=== PATIENT | male | born 1990 | race Caucasian/White ===

== ENCOUNTER 2019-05-14 09:18 | Emergency (ER) | payer MEDICAID ==
[~2019-05-14] VITALS: Ht 190.5 cm; Wt 86.2 kg
[2019-05-14 09:21] VITALS: BP 113/73
--- NOTE | 2019-05-14 09:36 | NUR ---
[place] [employer] FOR PREBOOK CLEARANCE. PT HAS ABRAISONS TO BILAT KNEES AND SUSPECTED ETOH INTOXICATION. PATIENT POSITIONED FOR COMFORT; HOB ELEVATED; BEDRAILS UP X2; BED DOWN. ER MD MADE AWARE OF PT STATUS.
--- NOTE | 2019-05-14 10:55 | NUR ---
Patient being evaluated by REJI at bedside.
--- NOTE | 2019-05-14 11:50 | NUR ---
DARELL SYKES. STATED TO RELEASE AND UNCUFFED PATIENT.
[2019-05-14 11:55] LABS: BASOPHILS % (AUTO) 0.3 % (0.0-2.0); EOSINOPHILS % (AUTO) 0.1 % (0.0-4.0); HEMATOCRIT 46.8 % (36-52); HEMOGLOBIN 15.5 g/dL (12.0-18.0); LYMPHOCYTES # (AUTO) 1.7 K/uL (2.0-11.5); LYMPHOCYTES % (AUTO) 27.9 % (20.5-51.1); MEAN CORPUSCULAR HEMOGLOBIN 31 pg (27-31); MEAN CORPUSCULAR HGB CONC 33 g/dL (33-37); MEAN CORPUSCULAR VOLUME 92.2 fL (80-94); MONOCYTES # (AUTO) 0.3 K/uL (0.8-1.0); MONOCYTES % (AUTO) 5.1 % (1.7-9.3); NEUTROPHILS % (AUTO) 66.6 % (42.2-75.2); PLATELET COUNT (AUTO) 274 K/uL (140-450); RED BLOOD CELL COUNT(AUTO) 5.08 MIL/uL (4.20-6.10)
[2019-05-14 12:05] LABS: ANION GAP 11.9 (8-16); POTASSIUM 3.9 mmol/L (3.5-5.1)
[2019-05-14 12:17] LABS: TOTAL BILIRUBIN 0.2 mg/dL (0.0-1.0)
[2019-05-14 13:25] LABS: BARBITURATE, URINE NEG. ng/ml (NEG <=200); BENZODIAZEPINE, URINE NEG. ng/mL (NEG <=200); CANNABINOID, URINE NEG. ng/mL (NEG <=50); COCAINE, URINE NEG. ng/mL (NEG <=300); OPIATE, URINE NEG. ng/mL (NEG <=2000); PHENCYCLIDINE SCREEN,URINE NEG. ng/mL (NEG <=25)
--- NOTE | 2019-05-14 15:11 | NUR ---
Patient being reevaluated by REJI at bedside.
[2019-05-14 15:16] VITALS: BP 118/87
--- NOTE | 2019-05-14 15:16 | NUR ---
Patient discharged with v/s stable. Written and verbal after care instructions given and explained. Patient verbalized understanding. Ambulatory with steady gait. All questions addressed prior to discharge. Advised to follow up with PMD.
== END 2019-05-14 15:16 | disposition home or self-care (01) ==
LOC: MED 09:18
DX: S80.212A Abrasion, left knee, initial encounter (principal); S80.211A Abrasion, right knee, initial encounter; S60.512A Abrasion of left hand, initial encounter; S60.511A Abrasion of right hand, initial encounter; X58.XXXA Exposure to other specified factors, initial encounter; F10.129 Alcohol abuse with intoxication, unspecified; Y93.89 Activity, other specified; Y92.89 Other specified places as the place of occurrence of the external cause; Y99.8 Other external cause status
CPT/HCPCS: 36415; 70450; 70491; 72125; 73562; 80053; 80305; 81002; 82550; 82553; 85025; 90471; 90715; 99284; G0482; Q9967

== ENCOUNTER 2019-08-20 11:03 | Inpatient (IN) | payer MEDICAID ==
[~2019-08-20] VITALS: Ht 190.5 cm; Wt 73.9 kg
[2019-08-20 11:12] VITALS: BP 138/97
--- NOTE | 2019-08-20 11:20 | NUR ---
Patient ambulated to bed 8. RN evaluating patient at bedside.
--- NOTE | 2019-08-20 11:25 | NUR ---
BIB MOM W/ C/O OVERDOSE OF IMMODIUM (80 TABLETS) THIS MORNING BEFORE 9AM & 1 GALLON OF VODKA LAST NIGHT. PT STATES " I WAS TRYING TO GET HIGH". DT DENIES SI/HI. MOM REPORTS PT WAS JUST RELEASED FROM PSYCHIATRIC FACILITY 1 WEEK AGO FOR SI - THREATENED SI THOUGHTS. PT WAS IN [facility] THIS MORNING, AFTER THAT WENT TO PSYCHIATRIC CLINIC, PT WAS CLAMMY & TACHYCARDIC AND SLURRING SPEECH.PT ALSO WAS GASPING FOR AIR A LITTLE BIT AROUND 1000 ( PER MOTHER). THEN PT CAME TO ER. HX: BIPOLAR, PTSD, MANY PRIOR SI ATTEMPTS, DRUG USE RX: QUETIAPINE, OLANZAPINE, MIRTAZAPINE, BENZTROPIN, SERTRALINE, GABAPENTIN . PT DENIES N/V/D; SKIN IS PINK/WARM/DRY; AWAKE, ALERT. BEDSIDE MONITOR SHOWS [id number]. LUNGS CLEAR BL; PT DENIES ANY FEVER, CP, SOB, OR COUGH AT THIS TIME; O2 SATS 98% ON RA. PATIENT STATES PAIN OF 0/10 AT THIS TIME; PATIENT POSITIONED FOR COMFORT; HOB ELEVATED; BEDRAILS UP X2; BED DOWN. ER MD MADE AWARE OF PT STATUS.MOTHER AT BEDSIDE.
[2019-08-20 11:42] LABS: BASOPHILS % (AUTO) 0.2 % (0.0-2.0); EOSINOPHILS # (AUTO) 0.1 K/uL (0-0.4); EOSINOPHILS % (AUTO) 0.9 % (0.0-4.0); HEMATOCRIT 50.4 % (36-52); LYMPHOCYTES # (AUTO) 1.4 K/uL (2.0-11.5); LYMPHOCYTES % (AUTO) 14.1 % (20.5-51.1); MEAN CORPUSCULAR HEMOGLOBIN 32 pg (27-31); MEAN CORPUSCULAR HGB CONC 34 g/dL (33-37); MEAN CORPUSCULAR VOLUME 95.4 fL (80-94); MONOCYTES # (AUTO) 0.8 K/uL (0.8-1.0); NEUTROPHILS # (AUTO) 7.3 K/uL (1.8-7.7); NEUTROPHILS % (AUTO) 76.8 % (42.2-75.2); PLATELET COUNT (AUTO) 235 K/uL (140-450); RED BLOOD CELL COUNT(AUTO) 5.28 MIL/uL (4.20-6.10); RED CELL DISTRIBUTION WIDTH 13.2 % (11.6-13.7); WHITE BLOOD COUNT (AUTO) 9.6 K/uL (4.8-10.8)
[2019-08-20 11:49] LABS: ANION GAP 17.8 (8-16); CARBON DIOXIDE 21.6 mmol/L (21-32); CHLORIDE 103 mmol/L (98-107); GFR ARICAN-AMERICAN 113 mL/min (>90); GLUCOSE 103 mg/dL (74-106); POTASSIUM 4.4 mmol/L (3.5-5.1); SODIUM SERUM 138 mmol/L (136-145); UREA NITROGEN, BLOOD 17 mg/dL (7-18)
--- NOTE | 2019-08-20 12:13 | NUR ---
CALLED [facility] [employer] [phone]. TALKED TO GEORGE. PER GEORGE, CHECK LAB TYLENOL, ASPIRIN , BLOOD ALCHOLO, OBERSERVE FOR 4-6 HRS. REPEAT EKG IN 4 HRS, IF PT IS LETHARGIC AND RESPIRATION DEPRESSION, GIVE PT NARCAN, WILL NOTIFY
--- NOTE | 2019-08-20 12:19 | NUR ---
Telepsychiatry consultation ordered as requested by Dr. Rayo.
[2019-08-20 12:23] LABS: ASPARTATE AMINOTRANSFERASE 45 U/L (15-37); TOTAL BILIRUBIN 1.1 mg/dL (0.0-1.0)
[2019-08-20 12:24] LABS: ACETAMINOPHEN < 0.5 ug/ml (10-30); ALBUMIN 4.7 g/dL (3.4-5.0); SALICYLATE 5.7 mg/dL (2.8-20.0)
[2019-08-20 12:45] LABS: APPEARANCE,URINE CLEAR (CLEAR); BILIRUBIN,URINE NEGATIVE (NEGATIVE); BLOOD, URINE NEGATIVE (NEGATIVE); COLOR,URINE YELLOW (YELLOW); LEUKOCYTE ESTERASE ,URINE NEGATIVE (NEGATIVE); NITRITE, URINE POSITIVE (NEGATIVE); PH,URINE 5.5 (5.0-9.0); UGLUCOSE NEGATIVE (NEGATIVE)
[2019-08-20 12:53] LABS: BARBITURATE, URINE NEG. ng/ml (NEG <=200); BENZODIAZEPINE, URINE NEG. ng/mL (NEG <=200); CANNABINOID, URINE NEG. ng/mL (NEG <=50); COCAINE, URINE NEG. ng/mL (NEG <=300); OPIATE, URINE NEG. ng/mL (NEG <=2000); PHENCYCLIDINE SCREEN,URINE NEG. ng/mL (NEG <=25)
[2019-08-20 13:04] LABS: RBC,URINE 0 /HPF (0-5); WBC,URINE 0-5 /HPF (0-5)
--- NOTE | 2019-08-20 13:09 | NUR ---
Telepsych is speaking with patient.
--- NOTE | 2019-08-20 14:02 | NUR ---
PT EATING LUNCH, MOTHER AT BEDSIDE.
--- NOTE | 2019-08-20 14:09 | NUR ---
[place] PD evaluating patient for 5150 hold at bedside.
--- NOTE | 2019-08-20 15:01 | NUR ---
RECEIVED PHONE CALL FROM [employer] EMPLOYEE AUGUST, UPDATED PT'S CONDITION. NOTIFIED LAB RESULTS.
[2019-08-20] MEDS ORDERED: LORazepam 1 MG TAB PO ONE (15:20)
[2019-08-20] MEDS ORDERED: ONDANSETRON 4 MG/2 ML VIAL IVP PRN (16:35)
[2019-08-20] MEDS ORDERED: HYDROcodone/APAP 5/325 MG 1 TAB TAB PO PRN (16:35)
[2019-08-20 17:00] VITALS: BP 112/61
--- NOTE | 2019-08-20 17:00 | NUR ---
TRANSFERRED PT TO TELE 109A BY WHEELCHAIR. PT AWAKE, ALERT. NO SOB. PT AMBULATES FROM HALLWAY TO HIS ROOM. REPORT GIVEN TO ARMOND VALLADARES . PT'S FATHER WITH PT.
--- NOTE | 2019-08-20 17:00 | NUR ---
PATIENT ARRIVED UNIT VIA WHEELCHAIR ACCOMPANIED BY ER NURSE AND PATIENT'S FATHER. PATIENT IS AAOX3 TO NAME, PLACE, TIME, BUT NOT DATE. RESPIRATION EVEN AND UNLABORED ON RA. DENIED PAIN, NAUSEA, AND VOMITING. NO SIGNS OF DISTRESS NOTED. NO IV SITE ESTABLISHED. PATIENT IS ABLE TO AMBULATE AND CONTINENT. ORIENTED PATIENT TO THE ROOM. SAFETY MEASURES IN PLACE. BED IN LOW POSITION AND 1:1 SITTER BY BEDSIDE.
--- NOTE | 2019-08-20 17:25 | NUR ---
STARTED IV ON RFA 22G, PATIENT TOLERATE WELL. DATED AND STABILIZED IV.
[2019-08-20] MEDS: LORazepam 2 MG/ML VIAL IVP PRN ×2 (18:00→21:44)
--- NOTE | 2019-08-20 18:00 | NUR ---
PATIENT COMPLAINED HE IS RESTLESS AND ANXIOUS, ADMINISTERED PRN ATIVAN VIA IVP, PATIENT TOLERATED. MED EDUCATION PROVIDED TO PATIENT AND PATIENT VERBALIZED UNDERSTANDING. PATIENT AWAKE AND READING MAGAZINE ON BED AT THIS TIME. NO SIGNS OF DISTRESS NOTED. SAFETY MEASURES IN PLACE. 1:1 SITTER BY BEDSIDE.
--- NOTE | 2019-08-20 18:04 | NUR ---
DR SORTO IS TALKING TO PATIENT AT BEDSIDE. NO SIGNS OF DISTRESS NOTED. SAFETY MEASURES IN PLACE.
--- NOTE | 2019-08-20 19:09 | NUR ---
ENDORSED PATIENT AT BEDSIDE TO AUTO COLLISION REPAIR INSTRUCTOR NURSE FOR CONTINUITY OF CARE. PATIENT IS RESTING ON BED AT THIS TIME. NO SIGNS OF DISTRESS NOTED. PATIENT IS IN STABLE CONDITION. SAFETY MEASURES IN PLACE. 1:1 SITTER BY BEDSIDE.
--- NOTE | 2019-08-20 19:10 | NUR ---
RECEIVED ENDORSEMENT FROM AM SHIFT RN. PATIENT ALERT AND ORIENTED X 3. INTRODUCED SELF. DENIES PAIN AND DISCOMFORT. CALM AND COOPERATIVE. PIV ON RIGHT UPPER ARM G22 AC, INTACT AND PATENT AND FLUSHING WELL. NO SIGNS OF DISTRESS NOTED. SAFETY MEASURES IN PLACE. ON 5150 HOLD. 1:[address] OBSERVED AT ALL TIMES.
--- NOTE | 2019-08-20 21:45 | NUR ---
PATIENT REQUESTED PRN ATIVAN FOR RESTLESSNESS. GIVEN ORDERED.
[2019-08-20] MEDS ORDERED: NICOTINE TRANSD SYS 21 MG/24 HR PATCH TD SCH (22:00)
[2019-08-20] MEDS: LORazepam 1 MG TAB PO SCH (23:16)
--- NOTE | 2019-08-20 23:30 | NUR ---
Checks done. Patient asleep in bed. No distress noted. 1:1 Sitter. Observed at all times. Will continue to monitor.
[2019-08-21] VITALS: BP 103/65
--- NOTE | 2019-08-21 01:20 | NUR ---
Rounds done. Patient resting comfortably in bed. Visible chest rise and fall noted. No apparent distress noted. Will continue to monitor.
--- NOTE | 2019-08-21 03:15 | NUR ---
Checks done. Patient asleep in bed at this time. No distress noted. Visible chest rise and fall noted. Will continue to monitor.
--- NOTE | 2019-08-21 04:10 | NUR ---
Checks made. Patient asleep on left lateral side. Visible chest rise and fall noted.
[2019-08-21] MEDS: LORazepam 1 MG TAB PO SCH ×3 (05:15→17:21)
--- NOTE | 2019-08-21 06:07 | NUR ---
Patient comfortable in bed. Due medications given. Vital stable. Will endorse to AM shift RN for continuity of care.
[2019-08-21 06:55] LABS: BASOPHILS % (AUTO) 0.4 % (0.0-2.0); EOSINOPHILS # (AUTO) 0.1 K/uL (0-0.4); EOSINOPHILS % (AUTO) 1.7 % (0.0-4.0); HEMATOCRIT 46.6 % (36-52); HEMOGLOBIN 15.3 g/dL (12.0-18.0); LYMPHOCYTES # (AUTO) 1.2 K/uL (2.0-11.5); LYMPHOCYTES % (AUTO) 26.6 % (20.5-51.1); MEAN CORPUSCULAR HEMOGLOBIN 32 pg (27-31); MEAN CORPUSCULAR HGB CONC 33 g/dL (33-37); MONOCYTES # (AUTO) 0.5 K/uL (0.8-1.0); MONOCYTES % (AUTO) 10.3 % (1.7-9.3); NEUTROPHILS # (AUTO) 2.7 K/uL (1.8-7.7); PLATELET COUNT (AUTO) 175 K/uL (140-450); RED BLOOD CELL COUNT(AUTO) 4.85 MIL/uL (4.20-6.10); RED CELL DISTRIBUTION WIDTH 13.1 % (11.6-13.7); WHITE BLOOD COUNT (AUTO) 4.5 K/uL (4.8-10.8)
--- NOTE | 2019-08-21 07:00 | NUR ---
PT IS AWAKE AND LYING ON THE BED, 1:1 SITTER ON THE BEDSIDE, PERIPHERAL LINE ON THE RT FA G. 22 ON SALINE LOCK, PT DENIES PAIN, DR. BERNARDO IS TALKING TO PT AND ASSESSING THE PT, AND SAID THAT PT IS STILL ON A 5150 [address] ON A PSYCH FACILITY, NO SIGN OF DISTRESS NOTED, ROOM WAS CHECKED FOR ANY HAZARDOUS OBJECT. WILL CONTINUE TO MONITOR PT.
[2019-08-21 08:00] VITALS: BP 115/65
[2019-08-21] MEDS: NICOTINE TRANSD SYS 21 MG/24 HR PATCH TD SCH (08:40)
[2019-08-21] MEDS: ESCITALOPRAM 20 MG TAB PO SCH (08:40)
--- NOTE | 2019-08-21 08:40 | NUR ---
PT IS AWAKE AND V/S TAKEN AND IS STABLE, ORAL MEDICATIONS WERE GIVEN AND NICOTINE PATCH APPLIED ON THE LEFT UA, TOLERATED THE MEDS, AND WILL CONTINUE TO MONITOR PT.
[2019-08-21 09:46] LABS: ANION GAP 12.3 (8-16); CARBON DIOXIDE 24.8 mmol/L (21-32); CREATININE 0.9 mg/dL (0.7-1.3); POTASSIUM 4.1 mmol/L (3.5-5.1); TOTAL BILIRUBIN 0.3 mg/dL (0.0-1.0)
[2019-08-21 09:47] LABS: ALBUMIN 3.7 g/dL (3.4-5.0)
--- NOTE | 2019-08-21 10:30 | NUR ---
PT IS CALM, QUIET AND KEEPS PACING BACK AND FORTH INSIDE THE ROOM.
--- NOTE | 2019-08-21 12:25 | NUR ---
PT IS AWAKE AND FEELING ANXIOUS, MEDICATIONS WAS GIVEN AND TOLERATED IT. WILL MONITOR PT.
--- NOTE | 2019-08-21 15:10 | NUR ---
PT WAS ASSISTED BY MARY TO HAVE A SHOWER NOW.
[2019-08-21 16:00] VITALS: BP 113/72
[2019-08-21] MEDS ORDERED: OLAN20TA1 PO (16:37)
[2019-08-21] MEDS ORDERED: GABA-640 PO (16:37)
[2019-08-21] MEDS ORDERED: MIRT15TA PO (16:37)
[2019-08-21] MEDS ORDERED: BENZ2TAB27 PO (16:37)
[2019-08-21] MEDS ORDERED: QUET25TA PO (16:37)
--- NOTE | 2019-08-21 17:21 | NUR ---
PT IS AWAKE AND ATIVAN WAS GIVEN, PARAMETER CHECKED. WILL MONITOR PT.
--- NOTE | 2019-08-21 19:10 | NUR ---
ENDORSED PT TO TRACK LAYER NURSEJAYRO FOR CONTINUITY OF CARE.
--- NOTE | 2019-08-21 19:11 | NUR ---
RECD. RESTING IN BED, AWAKE, A/OX4. RESPIRATION EVEN AND UNLABORED. IV SALINE LOCK AT THE LEFT FOREARM G22, PATENT AND INTACT. AMBULATORY TO THE BR. WHEN INQUIRED IF HE HAS ANY SUICIDAL THOUGHTS, STATED NONE. PLAN OF CARE FOR THE SHIFT DISCUSSED WITH PATIENT AND PARENTS, VERBALIZED UNDERSTANDING. MOTHER WANTS NIGHT MEDICATION AT HOME TO BE TAKEN TONIGHT. WILL FOLLOW UP WITH DR. SIERRA AND PHARMACY. DENIES PAIN 0/10.
[2019-08-21 20:00] VITALS: BP 101/51
[2019-08-21] MEDS ORDERED: ZOLPIDEM 5 MG TAB PO PRN (20:05)
[2019-08-21] MEDS: GABAPENTIN 100 MG CAP PO SCH (20:50)
--- NOTE | 2019-08-21 20:50 | NUR ---
DUE PO NIGHT MEDICATIONS GIVEN. SITTER AT THE DOOR MONITORING PATIENT.
[2019-08-21] MEDS: OLANZapine 5 MG TAB PO SCH (20:51)
[2019-08-21] MEDS: MIRTAZAPINE 15 MG TAB PO SCH (20:53)
[2019-08-21] MEDS ORDERED: GABAPENTIN 400 MG PO SCH (21:00)
--- NOTE | 2019-08-21 22:00 | NUR ---
SLEEPING COMFORTABLY IN BED.
[2019-08-22] VITALS: BP 97/59
--- NOTE | 2019-08-22 | NUR ---
SLEEPING SOUNDLY, SNORING IN BED;.
[2019-08-22] MEDS: LORazepam 1 MG TAB PO SCH ×5 (00:49→23:42)
--- NOTE | 2019-08-22 04:00 | NUR ---
STILL SLEEPING SOUNDLY IN BED. S1:1 SITTER STILL MONITORING PATIENT.
--- NOTE | 2019-08-22 06:57 | NUR ---
CONDITION REMAIN STABLE. NO NOTED SUICIDAL BEHAVIOR DURING SHIFT. SLEEPING MOST OF THE TIME. WILL ENDORSE TO AM NURSE FOR CONTINUITY OF CARE.
--- NOTE | 2019-08-22 07:17 | NUR ---
RECEIVED REPORT FROM SUBEDITOR NURSE. PATIENT LYING DOWN IN BED SLEEPING, AROUSABLE BY VOICE AND TOUCH. NO DISTRESS NOTED. DENIES ANY PAIN. AAOX4, CALM, COOPERATIVE, SKIN COLOR APPROPRIATE TO ETHNICITY, WARM TO TOUCH. SKIN INTACT. IV SITE INTACT, PATENT, ON SALINE LOCK. RESPIRATIONS EVEN, UNLABORED, ON ROOM AIR. REVIEWED PLAN OF CARE WITH PATIENT. PATIENT VERBALIZED UNDERSTANDING. SAFETY MEASURES IN PLACE, CALL LIGHT WITHIN REACH. WILL CONTINUE TO MONITOR.
[2019-08-22 08:00] VITALS: BP 106/60
--- NOTE | 2019-08-22 08:20 | NUR ---
PATIENT HAS BEEN SCREENED AND CATEGORIZED LOW NUTRITION RISK. PATIENT WILL BE SEEN WITHIN 7 DAYS OF ADMISSION. 08/26/[address]
[2019-08-22] MEDS: GABAPENTIN 100 MG CAP PO SCH ×2 (09:36→20:10)
[2019-08-22] MEDS: BENZTROPINE 1 MG TAB PO SCH (09:36)
[2019-08-22] MEDS: SERTRALINE 50 MG TAB PO SCH (09:37)
[2019-08-22] MEDS: OLANZapine 5 MG TAB PO SCH ×2 (09:37→20:09)
[2019-08-22] MEDS: NICOTINE TRANSD SYS 21 MG/24 HR PATCH TD SCH (09:37)
[2019-08-22] MEDS: ESCITALOPRAM 20 MG TAB PO SCH (09:37)
[2019-08-22] MEDS: QUEtiapine FUMARATE 25 MG TAB PO SCH ×3 (09:37→17:26)
--- NOTE | 2019-08-22 09:41 | NUR ---
PATIENT LYING DOWN IN BED SLEEPING, AROUSABLE BY VOICE. NO DISTRESS NOTED. DENIES ANY PAIN. SCHEDULED MEDICATIONS DUE GIVEN. WILL CONTINUE TO MONITOR.
--- NOTE | 2019-08-22 12:17 | NUR ---
PATIENT SITTING DOWN IN BED WITH LUNCH TRAY IN FRONT. SCHEDULED MEDICATIONS DUE GIVEN. WILL CONTINUE TO MONITOR.
--- NOTE | 2019-08-22 12:18 | NUR ---
PATIENT SITTING DOWN IN BED TALKING WITH MOTHER AT BEDSIDE. WILL CONTINUE TO MONITOR.
--- NOTE | 2019-08-22 15:30 | NUR ---
PATIENT LYING DOWN IN BED SLEEPING, MOTHER AT BEDSIDE. CONDITION UNCHANGED. SITTER AT BEDSIDE. WILL CONTINUE TO MONITOR.
[2019-08-22 16:00] VITALS: BP 108/62
--- NOTE | 2019-08-22 17:28 | NUR ---
PATIENT LYING DOWN IN BED SLEEPING, AROUSABLE BY VOICE. NO DISTRESS NOTED. DENIES ANY PAIN. SCHEDULED MEDICATIONS DUE GIVEN. WILL CONTINUE TO MONITOR.
--- NOTE | 2019-08-22 19:16 | NUR ---
GAVE REPORT TO GRAPHICS SPECIALIST NURSE FOR CONTINUITY OF CARE. PATIENT IN STABLE CONDITION.
--- NOTE | 2019-08-22 19:17 | NUR ---
RECEIVED BEDSIDE REPORT FROM DAY SHIFT NURSEBAILEY. PATIENT LYING DOWN IN BED SLEEPING, MOTHER AT BESIDE. NO DISTRESS NOTED. DENIES ANY PAIN. AAOX4, CALM, COOPERATIVE, SKIN INTACT, WARM AND DRY TO TOUCH. IV SITE ON LFA 22G, INTACT, PATENT, AND ASYMPTOMATIC ON SALINE LOCK. RESPIRATIONS EVEN, UNLABORED, ON ROOM AIR. REVIEWED PLAN OF CARE WITH PATIENT. PATIENT VERBALIZED UNDERSTANDING. SAFETY MEASURES IN PLACE, CALL LIGHT WITHIN REACH. WILL CONTINUE TO MONITOR.
[2019-08-22] MEDS: MIRTAZAPINE 15 MG TAB PO SCH (20:09)
[2019-08-22] MEDS: ZOLPIDEM 5 MG TAB PO PRN (20:09)
--- NOTE | 2019-08-22 20:10 | NUR ---
GIVEN GABAPENTIN, REMERON, AND OLANZAPINE. PT C/O INSOMNIA, GIVEN AMBIEN MD ORDERED. PT TOLERATED WELL.
--- NOTE | 2019-08-22 23:42 | NUR ---
GIVEN ATIVAN MD ORDERED. PT TOLERATED WELL. WILL CONTINUE TO MONITOR.
[2019-08-23] VITALS: BP 105/65
--- NOTE | 2019-08-23 02:55 | NUR ---
PT SLEEPING IN BED. NO ACUTE DISTRESS NOTED.
[2019-08-23] MEDS: LORazepam 1 MG TAB PO SCH ×4 (05:17→23:45)
--- NOTE | 2019-08-23 05:17 | NUR ---
GIVEN ATIVAN MD ORDERED. PT TOLERATED WELL. WILL CONTINUE TO MONITOR.
--- NOTE | 2019-08-23 06:49 | NUR ---
PT SLEEPING IN BED. NO ACUTE DISTRESS NOTED.
--- NOTE | 2019-08-23 07:15 | NUR ---
RECEIVED REPORT FROM PECAN CLEANER NURSE. PT IS ASLEEP, NO S/S OF ACUTE DISTRESS. SITTER IS BY THE ROOM. SAFETY PRECAUTIONS IN PLACE. IV SITE ON THE L FA 22 G, SALINE LOCKED. ON ROOM AIR, SKIN INTACT. WILL CONTINUE TO MONITOR.
[2019-08-23 08:00] VITALS: BP 102/55
[2019-08-23] MEDS: ESCITALOPRAM 20 MG TAB PO SCH (09:04)
[2019-08-23] MEDS: OLANZapine 5 MG TAB PO SCH ×2 (09:04→20:11)
[2019-08-23] MEDS: QUEtiapine FUMARATE 25 MG TAB PO SCH ×3 (09:05→17:27)
[2019-08-23] MEDS: NICOTINE TRANSD SYS 21 MG/24 HR PATCH TD SCH (09:05)
[2019-08-23] MEDS: BENZTROPINE 1 MG TAB PO SCH (09:05)
[2019-08-23] MEDS: GABAPENTIN 100 MG CAP PO SCH ×2 (09:05→20:11)
[2019-08-23] MEDS: SERTRALINE 50 MG TAB PO SCH (09:05)
--- NOTE | 2019-08-23 09:10 | NUR ---
ALL AM MEDS ADMINISTERED, PT TOLERATED WELL. PT IS CALM AND COOPERATIVE AT THIS TIME. SITTER IS AT THE ROOM.
[2019-08-23 16:00] VITALS: BP 112/72
--- NOTE | 2019-08-23 16:29 | NUR ---
Discharge Plan: AMRIK faxed 5150 to [facility] [phone]. AMRIK/CAROLYN will follow up as needed. Addendum: 08/24/19 at 1549 by Francisco Dunn AMRIK contacted [facility] and spoke to [place] to confirm clinical packet was received. Art stated that clinical packets were not received. AMRIK sent clinical packets at 1030. AMRIK called [facility] [phone] and spoke to Art at 1500 to see if there were any updates. Art stated that packet was not received. AMRIK requested to speak to supervisor stone and spoke to Adrianne who requested fax at [phone]. Adrianne stated that she would contact AMRIK once it is received. AMRIK faxed clinicals and is awaiting Adrianne's call. Addendum: 08/24/19 at 1601 by Francisco Dunn AMRIK contacted Adrianne at [facility] [phone]. Adrianne confirmed that 5150 and clinical packet was received for patient. Adrianne stated she will begin looking for facilities for patient. AMRIK/CAROLYN will follow up as needed. Addendum: 08/25/19 at 0913 by Francisco Dunn Patient is a 29 year old male admitted for overdose. Patient was given a 5150 on 08/22/19 @ 1120 and is expiring at 08/25/2019 @ 1120. Per charge nurse Hunt, patient is awaiting psych consult. AMRIK/CAROLYN will follow up. Addendum: 08/25/19 at 1613 by Francisco Dunn AMRIK contacted Charge Nurse Hunt to discuss DC plan for patient. Per Gilbert, patient is pending psych consult with Dr. Martinez on 08/26/2019. AMRIK/CM will follow up with patient. Addendum: 08/30/19 at 0907 by Francisco Dunn AMRIK contacted the following facilities: Spoke to Katherin from [facility] [phone]. Per Katherin, patient was approved but is pending a bed. Katherin stated there is no bed availability at this time. Spoke to Lesli from [facility] [phone]. Per Lesli, there is no bed availability at this time. Spoke to Mitali from [facility] [phone]. Per Mitali, there is no bed availability at this time. AMRIK/CM will follow up as needed. Addendum: 08/31/19 at 1150 by Francisco Dunn AMRIK contacted Charge Nurse Gilbert. Per Gilbert, 5150 was renewed 08/30/[address] Martinez. AMRIK contacted the following facilities: Kenney - [facility] - [phone]. Per Kenney, patient is clinically approved but is still pending bed availability. Kenney stated that she would call AMRIK if there is an available bed. [facility] - [phone]. Per [facility], there are available male beds. Tessa requested for a clinical packet to be sent. AMRIK faxed clinical packet to [phone]. Mitali [facility] - [phone]. Per Mitali, there is no bed availability at this time. AMRIK/CAROLYN will follow up as needed. SATISH Ruiz Ext. [phone] Addendum: 08/31/19 at 1410 by Francisco HOLCOMB Patient was accepted at [facility] [phone]. Accepting physician will be Dr. Patterson. Patient will be in room 109-A. Addendum: 08/31/19 at 1434 by Francisco Dunn Disregard previous note. Patient will be accepted at [facility] [phone]. Accepting physician will be Dr. Patterson. Patient will be in bed 1013A Addendum: 08/31/19 at 1457 by Francisco Dunn SS AMRIK contacted [facility] and spoke to Byron to set up transportation for patient at 3:30PM 08/31/2019. AMRIK provided [facility] [employer] form to Charge Nurse Gilbert for physician to sign. Gilbert stated that [employer] form will be faxed after physician signs document. AMRIK informed patient's nurseCourt of transportation time. No further needs identified.
--- NOTE | 2019-08-23 17:23 | NUR ---
PT PULLED OUT HIS IV.
--- NOTE | 2019-08-23 18:27 | NUR ---
PT REFUSING TO HAVE A NEW IV INSERTED.
--- NOTE | 2019-08-23 19:30 | NUR ---
PT ENDORSED TO TRADE UNION SECRETARY NURSE IN STABLE CONDITION.
--- NOTE | 2019-08-23 19:31 | NUR ---
RECEIVED BEDSIDE REPORT FROM DAY SHIFT NURSE PATIENT LYING DOWN IN BED SLEEPING, MOTHER AT BESIDE. NO DISTRESS NOTED. DENIES ANY PAIN. AAOX4, CALM, COOPERATIVE, SKIN INTACT, WARM AND DRY TO TOUCH. NO IV SITE PER PREVIOUS SHIFT; PT PULLED OUT HIS IV; REFUSES TO HAVE IV INSERTION; RESPIRATIONS EVEN, UNLABORED, ON ROOM AIR. REVIEWED PLAN OF CARE WITH PATIENT. PATIENT VERBALIZED UNDERSTANDING. SAFETY MEASURES IN PLACE, CALL LIGHT WITHIN REACH. WILL CONTINUE TO MONITOR.
[2019-08-23 20:00] VITALS: BP 122/78
--- NOTE | 2019-08-23 20:00 | NUR ---
PT WALKING IN THE ROOM; BUT CALM; PT REQUESTED FOR HIS MEDS TO BE GIVEN SOON HE CAN TAKE IT
[2019-08-23] MEDS: MIRTAZAPINE 15 MG TAB PO SCH (20:11)
--- NOTE | 2019-08-23 20:11 | NUR ---
MEDICATED PT TOLERATED WELL; PT COOPERATIVE.
[2019-08-23] MEDS: ZOLPIDEM 5 MG TAB PO PRN (20:12)
--- NOTE | 2019-08-24 00:47 | NUR ---
PT SLEEPING SUPINE; NO COMPLAINTS AT THIS TIME, WILL CONTINUE TO MONITOR
--- NOTE | 2019-08-24 03:24 | NUR ---
CHECKED ON PATIENT W/ SITTER AT BEDSIDE; NO COMPLAINTS, PT HAS BEEN SLEEPING FOR LONG PERIODS.
--- NOTE | 2019-08-24 04:15 | NUR ---
PT STILL SLEEPING; NO COMPLAINTS AT THIS W/ SITTER. NO RESPIRATORY DISTRESS AND NO PAIN WILL CONTINUE TO MONITOR
--- NOTE | 2019-08-24 06:00 | NUR ---
APPLICATION FOR ASSESSMENT AT CHART ORDERED LAST 08/22/19
[2019-08-24] MEDS: LORazepam 1 MG TAB PO SCH ×3 (06:03→18:01)
--- NOTE | 2019-08-24 06:11 | NUR ---
PT AWAKE; ALERT ORIENRTED X 4; STILL SLEEPY, AT BED, W/ SITTER; WILL ENDORSE TO NEXT SHIFT.PT IN STABLE CONDITION
--- NOTE | 2019-08-24 07:10 | NUR ---
RECEIVED BEDSIDE REPORT FROM BRAZING MACHINE OPERATOR NURSE. PS IS ASLEEP, NO S/S OF ACUTE DISTRESS. SITTER AT THE ROOM. SAFETY PRECAUTIONS ARE IN PLACE. NO IV SITE, PT PULLED IT OUT LAST NIGHT AND REFUSES TO HAVE ANOTHER ONE INSERTED. PT IS ON ROOM AIR, SKIN INTACT.
[2019-08-24 08:00] VITALS: BP 101/52
[2019-08-24] MEDS: NICOTINE TRANSD SYS 21 MG/24 HR PATCH TD SCH (08:38)
[2019-08-24] MEDS: SERTRALINE 50 MG TAB PO SCH (08:39)
[2019-08-24] MEDS: OLANZapine 5 MG TAB PO SCH ×2 (08:39→20:26)
[2019-08-24] MEDS: ESCITALOPRAM 20 MG TAB PO SCH (08:39)
[2019-08-24] MEDS: GABAPENTIN 100 MG CAP PO SCH ×2 (08:39→20:20)
[2019-08-24] MEDS: QUEtiapine FUMARATE 25 MG TAB PO SCH ×3 (08:40→18:01)
[2019-08-24] MEDS: BENZTROPINE 1 MG TAB PO SCH (08:40)
--- NOTE | 2019-08-24 08:45 | NUR ---
ALL AM MEDS ADMINISTERED, PT TOLERATED WELL. PT'S PARENTS ARE VISITING.
--- NOTE | 2019-08-24 11:19 | NUR ---
PT IS SLEEPING COMFORTABLY, NO S/S OF ACUTE DISTRESS NOTED, SITTER BY AT THE ROOM.
--- NOTE | 2019-08-24 12:45 | NUR ---
PATIENT WALKING IN THE ROOM, NO DISTRESS NOTED, SITTER AT BEDSIDE.
--- NOTE | 2019-08-24 14:30 | NUR ---
PT TAKING A SHOWER. SITTER IS BY THE SHOWER DOOR.
[2019-08-24 16:00] VITALS: BP 113/78
--- NOTE | 2019-08-24 16:28 | NUR ---
[facility] aware of patient and will assist with placement. Referral has been faxed to the following facilities for review: [facility], [facility], [facility], [facility].
[2019-08-24] MEDS: ZOLPIDEM 5 MG TAB PO PRN (18:49)
--- NOTE | 2019-08-24 19:20 | NUR ---
RECEIVED BEDSIDE REPORT FROM DAY SHIFT NURSE PATIENT LYING DOWN IN BED AWAKE, MOTHER AT BESIDE. NO DISTRESS NOTED. DENIES ANY PAIN. AAOX4, CALM, COOPERATIVE, SKIN INTACT, WARM AND DRY TO TOUCH. NO IV SITE REFUSES TO HAVE IV INSERTION; RESPIRATIONS EVEN, UNLABORED, ON ROOM AIR. REVIEWED PLAN OF CARE WITH PATIENT. PATIENT VERBALIZED UNDERSTANDING. SAFETY MEASURES IN PLACE, CALL LIGHT WITHIN REACH. WILL CONTINUE TO MONITOR.
--- NOTE | 2019-08-24 19:20 | NUR ---
ENDORSED PT TO SURVEYOR IN STABLE CONDITION.
[2019-08-24] MEDS: MIRTAZAPINE 15 MG TAB PO SCH (20:20)
--- NOTE | 2019-08-24 21:30 | NUR ---
PT ALREADY TRYING TO GET SOME SLEEP, WENT TO BATHROOM X 1 VOIDED
--- NOTE | 2019-08-24 23:05 | NUR ---
PT SLEEPING, PT CALM, NO PAIN, NO COMPLAINTS AT THIS TIME
[2019-08-25] VITALS: BP 110/66
--- NOTE | 2019-08-25 00:07 | NUR ---
ATIVAN MIDNIGHT DOES REFUSED BY PATIENT, PT SLEEPING . PT CALM AT THIS TIME
--- NOTE | 2019-08-25 02:20 | NUR ---
PATIENT SLEEPING IN HIS SIDE, WILL CHECK PT FREQUENTLY
--- NOTE | 2019-08-25 02:30 | NUR ---
RECEIVED PATIENT FROM [facility] FOR CONTINUITY OF CAARE. PT SLEEPING COMFORTABLY.
--- NOTE | 2019-08-25 02:55 | NUR ---
PT ENDORSED TO [facility] NURSE FOR CONTINUITY OF CARE. PT SLEEPING AT THIS TIME, BUT ABLE TO AWAKE BY VERBAL STIMULI. PT IN STABLE CONDITION Addendum: 08/25/19 at 0313 by Tamiko Burrows RN PLS AMEND TIME ENDORSED TO 224
--- NOTE | 2019-08-25 03:27 | NUR ---
Follow up calls were made to psychiatric facilities regarding bed placement, still no updates on bed vacancies through out shift. [facility] Tarik Sal, spokew chon Wilson. [facility], spoke with Renetta. [facility], spoke with Namrata. [facility], spoke with Dorothy. [facility], spoke with Lavern. [facility], spoke with Eleni. [facility], spoke with Chantal.
[2019-08-25] MEDS: LORazepam 1 MG TAB PO SCH ×4 (05:31→17:08)
--- NOTE | 2019-08-25 05:31 | NUR ---
AWAKEN BRIEFLY FOR ROUTINE MEDS, NO COMPLAINTS.
--- NOTE | 2019-08-25 06:49 | NUR ---
PT STILL SLEEPING, NO RESPIRATORY DISTRESS OR C/O PAIN.[id number]
--- NOTE | 2019-08-25 07:25 | NUR ---
RECEIVED REPORT FROM NIGHT NURSE. PT ASLEEP. NO DISTRESS NOTED. NO IV IN PLACE. RESPIRATIONS EVEN AND UNLABORED ON ROOM AIR. SKIN INTACT. 5150 PT WITH SITTER. SAFETY MEASURES IN PLACE. BED IN LOW POSITION. CALL LIGHT WITHIN REACH. WILL CONTINUE TO MONITOR.
[2019-08-25 08:00] VITALS: BP 99/52
[2019-08-25] MEDS: GABAPENTIN 100 MG CAP PO SCH ×2 (08:57→21:55)
[2019-08-25] MEDS: BENZTROPINE 1 MG TAB PO SCH (08:57)
[2019-08-25] MEDS: OLANZapine 5 MG TAB PO SCH ×2 (08:57→21:56)
[2019-08-25] MEDS: QUEtiapine FUMARATE 25 MG TAB PO SCH ×3 (08:57→17:07)
[2019-08-25] MEDS: SERTRALINE 50 MG TAB PO SCH (08:57)
[2019-08-25] MEDS: ESCITALOPRAM 20 MG TAB PO SCH (08:58)
[2019-08-25] MEDS: NICOTINE TRANSD SYS 21 MG/24 HR PATCH TD SCH (09:02)
--- NOTE | 2019-08-25 09:02 | NUR ---
MEDICATIONS ADMINISTERED PER ORDER. PT TOLERATED WELL. NO DISTRESS NOTED. WILL CONTINUE TO MONITOR.
--- NOTE | 2019-08-25 10:53 | NUR ---
PT IN BED SLEEPING. NO DISTRESS NOTED. SAFETY MEASURES IN PLACE. SITTER OBSERVING AT THIS TIME. WILL CONTINUE TO MONITOR.
--- NOTE | 2019-08-25 12:34 | NUR ---
MEDICATIONS ADMINISTERED PER ORDER. PT TOLERATED WELL. NO DISTRESS NOTED. PT EATING LUNCH AT THIS TIME. WILL CONTINUE TO MONITOR.
--- NOTE | 2019-08-25 14:00 | NUR ---
PT IN BED SLEEPING AT THIS TIME. NO DISTRESS NOTED. SAFETY MEASURES IN PLACE. BEING MONITORED BY SITTER. WILL CONTINUE TO MONITOR.
--- NOTE | 2019-08-25 14:46 | NUR ---
08/25/19 RD INITIAL ASSESSMENT COMPLETED PLEASE REFER TO NUTRITION ASSESSMENT UNDER CARE ACTIVITY FOR ESTIMATED NUTRITIONAL NEEDS. 1. CONTINUE REGULAR DIET TOLERATED 2. RD TO FOLLOW-UP 5-7 DAYS, LOW RISK AALIYAH LEMUS RD
[2019-08-25 16:00] VITALS: BP 91/55
--- NOTE | 2019-08-25 17:20 | NUR ---
MEDICATIONS ADMINISTERED PER ORDER. PT TOLERATED WELL. PT REPORTED BEING A LITTLE ANXIOUS. WILL CONTINUE TO MONITOR.
[2019-08-25] MEDS: ZOLPIDEM 5 MG TAB PO PRN (18:29)
--- NOTE | 2019-08-25 19:09 | NUR ---
REPORT GIVEN TO NIGHT NURSE FOR CONTINUITY OF CARE.
--- NOTE | 2019-08-25 19:10 | NUR ---
RECD. RESTING IN BED, AWAKE, A/OX4. RESPIRATION EVEN AND UNLABORED. NO IV LINE, REFUSED FOR NEW IV LINE TO BE STARTED. WHEN INQUIRED IF HE HAS PLAN OF HURTING SELF OR HEARING VOICES STATED HE HAS NO PLAN OF HURTING HIMSELF BUT OCCASIONALLY STILL HEARING VOICES. PLAN OF CARE FOR THE SHIFT DISCUSSED. VERBALIZED UNDERSTANDING. SITTER NEAR DOOR MONITORING PATIENT. DENIES PAIN 0/10.
--- NOTE | 2019-08-25 19:49 | NUR ---
Change of shift report given, will continue to help facilitate placement. Will keep facility informed of any transfer admission
--- NOTE | 2019-08-25 21:30 | NUR ---
REVIEWED PT PLAN OF CARE DISCUSSED AND REVIEWED WITH JAYRO CROWE LVN.
[2019-08-25] MEDS: MIRTAZAPINE 15 MG TAB PO SCH (21:55)
--- NOTE | 2019-08-25 21:55 | NUR ---
WAKEN UP TO TAKE HIS NIGHT MEDICATIONS, TOLERATED WELL.
--- NOTE | 2019-08-25 23:21 | NUR ---
No Beds through this evening, many facilities acknowledged that discharges are apparent in the morning. [facility] stated they have approved patient however no beds at this time. Intake paperwork has been sent to [facility]/ [facility]/ pérez Pineda/ [facility]/ [facility]/ [facility]
[2019-08-26] VITALS: BP 100/58
--- NOTE | 2019-08-26 | NUR ---
SNORING IN BED, ATIVAN NOT GIVEN, PATIENT IS IN DEEP SLEEP. VS STABLE.
--- NOTE | 2019-08-26 04:00 | NUR ---
STILL SLEEPING COMFORTABLY IN BED, SITTER MONITORING PATIENT.
--- NOTE | 2019-08-26 07:00 | NUR ---
CONDITION REMAIN STABLE. NO SUICIDAL BEHAVIOR NOTED DURING SHIFT. WILL ENDORSE TO AM NURSE FOR CONTINUITY OF CARE..
[2019-08-26] MEDS: LORazepam 1 MG TAB PO SCH ×4 (07:14→17:10)
--- NOTE | 2019-08-26 07:50 | NUR ---
Received report from shift superintendent caustic cresylate nurse. Pt is in bed. No signs of distress. Call light in reach. [id number]
[2019-08-26 08:00] VITALS: BP 98/50
[2019-08-26] MEDS: QUEtiapine FUMARATE 25 MG TAB PO SCH ×3 (08:42→17:10)
[2019-08-26] MEDS: NICOTINE TRANSD SYS 21 MG/24 HR PATCH TD SCH (08:42)
[2019-08-26] MEDS: SERTRALINE 50 MG TAB PO SCH (08:42)
[2019-08-26] MEDS: GABAPENTIN 100 MG CAP PO SCH ×2 (08:42→20:46)
[2019-08-26] MEDS: OLANZapine 5 MG TAB PO SCH ×2 (08:43→20:45)
[2019-08-26] MEDS: BENZTROPINE 1 MG TAB PO SCH (08:43)
[2019-08-26] MEDS: ESCITALOPRAM 20 MG TAB PO SCH (08:43)
--- NOTE | 2019-08-26 10:00 | NUR ---
SPOKE WITH DR. REINA OVER THE PHONE REGARDING THE PSYCH REEVALUATION. PER DR. REINA, HE WILL COME TO SEE PT LATER IN THE AFTERNOON.
--- NOTE | 2019-08-26 10:44 | NUR ---
Pt's mother wanted to talk to social media intern regarding pt's transfer to a psych facility. Called social media intern and informed her. emergency service worker to call mother Per Ney. [id number]
--- NOTE | 2019-08-26 10:52 | NUR ---
Social Work Note: AMRIK contacted [facility]ierrezin [phone]. AMRIK spoke with mother regarding discharge plan for patient. SW explained to Per that patient is pending a psychiatric consultation to evaluate if inpatient psychiatry would be necessary or if patient is medically cleared to go home. AMRIK educated Per on voluntary psychiatric placement at psychiatric facilities and provided [employer] to see what contracted facilities are available if Per feels that a mental health facility would be appropriate for patient. Per stated that patient has been working with a social worker school from [employer] and that she would discuss voluntary admission for patient with patient's social worker school. AMRIK provided his contact information [phone] if Per needs further assistance. AMRIK/CAROLYN will follow up.
--- NOTE | 2019-08-26 11:32 | NUR ---
Pt is in bed. No distress noted. Sitter by bed side. [email or web address]
[2019-08-26] MEDS: ACETAMINOPHEN 325 MG TAB PO PRN (13:38)
--- NOTE | 2019-08-26 13:45 | NUR ---
Pt is walking in room. Pt said that he was anxious and wanted Tylenol for head ached. Pt was given Tylenol. Sitter by bedside. [email or web address]
--- NOTE | 2019-08-26 15:01 | NUR ---
Pt is walking in room. Says Tylenol helped him with headache. But want to continue to walk. Sitter by bedside. [email or web address]
[2019-08-26 16:00] VITALS: BP 118/67
--- NOTE | 2019-08-26 16:30 | NUR ---
Pt is walking in room. Wants Ambien. Explained to patient that it was too early for Ambien. Endorsed to shift supervisor film processing nurse.[id number]
--- NOTE | 2019-08-26 19:04 | NUR ---
Change of shift report given, will continue to help with facilitating placement
--- NOTE | 2019-08-26 19:27 | NUR ---
Shift report given to operation shift supervisor nurse. Pt is still walking in room. sitter by bedside. [id number]
--- NOTE | 2019-08-26 19:28 | NUR ---
RECD. AMBULATING INSIDE HIS ROOM, BACK AND FORTH SEVERAL TIMES. AWAKE, A/OX3. RESPIRATION EVEN AND UNLABORED. NO IV LINE. STATED OF THIS TIME HE DOES NOT HEAR VOICES AND HAS NO PLAN OF HURTING HIMSELF. PLAN OF CARE FOR THE SHIFT DISCUSSED. WANTED SO MUCH TO TAKE NOW HIS SLEEPING PILL. DENIES PAIN 0/10.
[2019-08-26] MEDS: ZOLPIDEM 5 MG TAB PO PRN (19:31)
--- NOTE | 2019-08-26 19:31 | NUR ---
WANTS TO SLEEP EARLY, MEDICATED WITH AMBIEN 5 MG. PO.
--- NOTE | 2019-08-26 20:16 | NUR ---
STILL AMBULATING BACK AND FORTH INSIDE HIS ROOM, WANTS A NICOTINE PATCH. EXPLAINED THE AM NURSE ALREADY GAVE HIM AND THE NEXT DOSE WILL BE TOMORROW MORNING.
[2019-08-26] MEDS: MIRTAZAPINE 15 MG TAB PO SCH (20:45)
--- NOTE | 2019-08-26 20:46 | NUR ---
DUE PO MEDICATIONS GIVEN. REQUESTED FOR SNACKS THREE TIMES. STILL AMBULATING BACK AND FORTH INSIDE HIS ROOM.
--- NOTE | 2019-08-26 22:15 | NUR ---
ABLE TO FALL SLEEP.
[2019-08-26 22:40] VITALS: BP 131/81
[2019-08-27] MEDS: LORazepam 1 MG TAB PO SCH ×4 (00:34→17:06)
--- NOTE | 2019-08-27 01:44 | NUR ---
Continuing to monitor facilities, no beds available will keep facility informed of any progress
--- NOTE | 2019-08-27 02:00 | NUR ---
INFORMED DR. RAMIREZ REGARDING PT PROBLEM, WILL CHECK TOMORROW. Addendum: 08/27/19 at 0322 by Teresa Ferguson LVN CORRECTION: TIME OF THIS NOTES SHOULD BE 2100 NOT 0200.
--- NOTE | 2019-08-27 03:00 | NUR ---
STILL SLEEPING COMFORTABLY IN BED.
--- NOTE | 2019-08-27 06:23 | NUR ---
CONDITION REMAIN STABLE. SAFETY MAINTAINED DURING SHIFT. WILL ENDORSE TO AM SHIFT NURSE FOR CONTINUITY OF CARE.
--- NOTE | 2019-08-27 07:30 | NUR ---
Received report from cage shift manager nurse. Pt is in bed resting. No signs of distress. Call light in reach [id number]
--- NOTE | 2019-08-27 07:44 | NUR ---
Received report from manufacturing supervisor 2nd shift. [facility] still following patient.
[2019-08-27 08:00] VITALS: BP 107/61
[2019-08-27] MEDS: NICOTINE TRANSD SYS 21 MG/24 HR PATCH TD SCH (08:25)
[2019-08-27] MEDS: SERTRALINE 50 MG TAB PO SCH (08:25)
[2019-08-27] MEDS: QUEtiapine FUMARATE 25 MG TAB PO SCH ×3 (08:26→17:06)
[2019-08-27] MEDS: BENZTROPINE 1 MG TAB PO SCH (08:26)
[2019-08-27] MEDS: OLANZapine 5 MG TAB PO SCH ×2 (08:26→20:25)
[2019-08-27] MEDS: GABAPENTIN 100 MG CAP PO SCH ×2 (08:26→20:25)
--- NOTE | 2019-08-27 09:57 | NUR ---
Scallop Raker Note: Per Jolynn from [facility] , patient has been clinically approved, except they do not have any beds available today. She stated they will call nurses station once they have a bed available. I confirmed she had telemetrys phone number. Per Jolynn from [facility] , they do not have referral. They are anticipating having beds available after 10:30am today. I faxed referral. Per Tamiko from [facility] , they do not have any beds available at this time. She stated referral has not been reviewed because they do not have beds available at this time.
--- NOTE | 2019-08-27 10:00 | NUR ---
Pt is walking in room . No signs of distress. No complains of pain. Sitter be bedside. [id number]
--- NOTE | 2019-08-27 12:10 | NUR ---
Pt mother was at bedside. Pt mother requested to talk to SS. Called SS and left voice mail for Chely to call mother and talk to her regarding transfer to a psych facility. [id number]
--- NOTE | 2019-08-27 13:17 | NUR ---
Called the following facilities: [facility]w K[facility]. No beds, possible discharges later. [facility], s/w Kenney. No beds, completely full. [facility], s/w Jerry Hidalgo. No beds. [facility], s/w Marcial. No beds at this time. [facility]. No answer, called 2x. Will follow up later.
[2019-08-27 16:00] VITALS: BP 116/69
--- NOTE | 2019-08-27 16:04 | NUR ---
Pt is resting in bed. No signs of agitation at this time. Sitter by bedside. No C/O pain.
[2019-08-27] MEDS: ACETAMINOPHEN 325 MG TAB PO PRN (17:11)
--- NOTE | 2019-08-27 19:42 | NUR ---
Shift report given to production supervisor off shift nurse. Pt in stable condition.
--- NOTE | 2019-08-27 19:43 | NUR ---
RECEIVED BEDSIDE REPORT FROM DAY SHIFT NURSE LEVON RN, PT STABLE,NO DISTRESS NOTED, PT HAS NO IV ACCESS, REFUSED, ON ROOM AIR, NO SOB NOTED, INITIAL ASSESSMENT DONE, ALL SAFETY PRECAUTION, MET, SITTER AT BEDSIDE, WILL CONTINUE TO MONITOR.
[2019-08-27] MEDS: MIRTAZAPINE 15 MG TAB PO SCH (20:26)
[2019-08-27] MEDS: ZOLPIDEM 5 MG TAB PO PRN (20:26)
--- NOTE | 2019-08-27 20:26 | NUR ---
DUE MEDICATION ADMINISTERED, PT TOLERATED WELL, PT REQUESTED AMBIEN TO HELP HIM SLEEP, MEDICATION GIVEN PER DR ORDER, PT RESTING SITTER AT BEDSIDE, WILL CONTINUE TO MONITOR.
--- NOTE | 2019-08-27 21:16 | NUR ---
Change of shift report was given earlier. There is no updated information for bed placement, but will continue to search. Called and spoke with Elida VALLADARES she will fax updated hold so intake paperwork is complete. If any questions please call us at [phone]
[2019-08-28] VITALS: BP 106/57
[2019-08-28] MEDS: LORazepam 1 MG TAB PO SCH ×3 (00:17→17:42)
--- NOTE | 2019-08-28 00:17 | NUR ---
DUE MEDICATION ADMINISTERED, PT TOLERATED WELL, V/S TAKEN, WNL, SITTER AT BEDSIDE, WILL CONTINUE TO MONITOR.
--- NOTE | 2019-08-28 01:46 | NUR ---
ENDORSED PT TO JACQUELYN SAMANIEGO FOR CONTINUOUS OF CARE. PT STABLE, NO DISTRESS NOTED, 1:1 SITTER AT BEDSIDE
--- NOTE | 2019-08-28 01:47 | NUR ---
RECIEVED REPORT FROM JACQUELYN JAY.. PT IS SLEEPING , RESP. EVEN AND UNLABORED . NO IV RA LENNOX , ON 5150 HOLD - ON 1:1 SITTER. ON SAFET PRECAUTION PROTOCOL- WILL CONT. TO MONITOR.NO SIGNS OF DISTRESS NOTED AT THIS TIME.
--- NOTE | 2019-08-28 04:00 | NUR ---
MADE ROUNDS , SLEEPING . NO SIGNS OF DISTRESS NOTED AT THIS TIME . WILL CONT. TO MONITOR.
--- NOTE | 2019-08-28 06:00 | NUR ---
CALLED DR BERNARDO ( BASTING MACHINE OPERATOR PSYCHE ) FOR RENEWAL OF ATIVAN P.O ORDER - NO CALLBACK.
--- NOTE | 2019-08-28 07:10 | NUR ---
ENDORSED TO AM SHIFT WITH STABLE CONDITION.
--- NOTE | 2019-08-28 07:15 | NUR ---
RECEIVED BEDSIDE REPORT FROM VASCULAR NEUROLOGIST NURSE, PT IS ASLEEP, NO S/S OF DISTRESS. NO IV SITE NOTED. SITTER IS AT THE ROOM. SKIN INTACT. ON ROOM AIR. SAFETY PRECAUTIONS IN PLACE.
[2019-08-28 08:00] VITALS: BP 109/71
[2019-08-28] MEDS: NICOTINE TRANSD SYS 21 MG/24 HR PATCH TD SCH (09:12)
[2019-08-28] MEDS: SERTRALINE 50 MG TAB PO SCH (09:12)
[2019-08-28] MEDS: OLANZapine 5 MG TAB PO SCH ×2 (09:12→20:03)
[2019-08-28] MEDS: BENZTROPINE 1 MG TAB PO SCH (09:13)
[2019-08-28] MEDS: GABAPENTIN 100 MG CAP PO SCH ×2 (09:13→20:03)
[2019-08-28] MEDS: QUEtiapine FUMARATE 25 MG TAB PO SCH ×3 (09:13→17:42)
--- NOTE | 2019-08-28 09:18 | NUR ---
AM MEDS ADMINISTERED, PT TOLERATED WELL. SITTER IS BY THE ROOM.
--- NOTE | 2019-08-28 12:11 | NUR ---
PAGED DR SMITH TO NOTIFY HIM THAT PT'S SCHEDULED 2 MG ATIVAN HAS FALLEN OFF. AWAITING CALL BACK. Addendum: 08/28/19 at 1353 by Jocelyn Barrios RN GOT A CALL BACK FROM EM TREVIÑO TO RENEW PT'S 2 MG ATIVAN PO Q6H ORDER.
[2019-08-28] MEDS ORDERED: LORazepam 1 MG TAB PO PRN (13:10)
[2019-08-28] MEDS ORDERED: LORazepam 1 MG TAB PO SCH (13:28)
--- NOTE | 2019-08-28 14:05 | NUR ---
PT RESTING COMFORTABLY IN BED, NO S/S OF DISTRESS. SITTER IS AT THE ROOM
[2019-08-28 16:00] VITALS: BP 109/55
--- NOTE | 2019-08-28 19:30 | NUR ---
ENDORSED PT TO LAST IRONER CHARGE NURSE IN STABLE CONDITION
[2019-08-28] MEDS: MIRTAZAPINE 15 MG TAB PO SCH (20:02)
--- NOTE | 2019-08-28 21:05 | NUR ---
DR SORTO CALLED REGARDING PT REQUESTING SLEEPING PILL, AWAITING TO RETURN CALL.
--- NOTE | 2019-08-28 21:10 | NUR ---
DR MYLES ANSWERING CALL FOR DR SORTO RETURN CALL ORDER RECEIVED OF AMBIEN 5 MG PO PRN FOR SLEEP
[2019-08-28] MEDS: ZOLPIDEM 5 MG TAB PO PRN (21:37)
--- NOTE | 2019-08-29 01:00 | NUR ---
[facility] IN [place] CALLED IF WE STILL NEED PLACEMENT FOR Sophia ASTORGA AND I SAID YES SHE ANSWERED I WILL CALL YOU BACK.
[2019-08-29 04:45] VITALS: BP 121/70
[2019-08-29] MEDS: LORazepam 1 MG TAB PO SCH ×5 (06:00→17:07)
--- NOTE | 2019-08-29 07:05 | NUR ---
RECEIVED BEDSIDE REPORT FROM EXECUTIVE CYBER LEADER NURSE. PATIENT IS AWAKE, ALERT AND ORIENTEDX4. NO SIGNS OF DISTRESS ON RA. SKIN IS INTACT. NO IV ACCESS. AMBULATORY. CONTINENT. HAS 1:1 SITTER. BED IN LOW POSITION. WILL CONTINUE TO MONITOR
[2019-08-29 08:00] VITALS: BP 109/69
[2019-08-29] MEDS: NICOTINE TRANSD SYS 21 MG/24 HR PATCH TD SCH (08:58)
[2019-08-29] MEDS: SERTRALINE 50 MG TAB PO SCH (09:01)
[2019-08-29] MEDS: BENZTROPINE 1 MG TAB PO SCH (09:01)
[2019-08-29] MEDS: OLANZapine 5 MG TAB PO SCH ×2 (09:01→20:37)
[2019-08-29] MEDS: GABAPENTIN 100 MG CAP PO SCH ×2 (09:01→20:36)
[2019-08-29] MEDS: QUEtiapine FUMARATE 25 MG TAB PO SCH ×3 (09:01→17:07)
--- NOTE | 2019-08-29 09:05 | NUR ---
ADMINISTERED MEDS. PATIENT TOLERATED WELL. EDUCATED ON MEDS. WILL CONTINUE TO MONITOR
--- NOTE | 2019-08-29 09:58 | NUR ---
FAMILY AT BEDSIDE. MOTHER WANTS TO KNOW IF HES STABLE IF HE CAN JUST GO TO A REHAB. PAGED DR CHAVEZ
--- NOTE | 2019-08-29 10:11 | NUR ---
[facility], patient has been approved but they are waiting for an available bed. No eta. [facility] will continue to follow up
--- NOTE | 2019-08-29 11:00 | NUR ---
PATIENT WANTED TO SHOWER. SHOWER UNAVAILABLE AT THIS TIME.
--- NOTE | 2019-08-29 12:14 | NUR ---
98.4 TEMP, 112/67 B/P 96 HR 96% RA, 18 RR. ADMINISTERED MEDS. PATIENT TOLERATED WELL. NO SIGNS OF DISTRESS. WILL CONTINUE TO MONITOR.
--- NOTE | 2019-08-29 14:00 | NUR ---
PATIENT IS SLEEPING. WILL CONTINUE TO MONITOR
[2019-08-29 16:00] VITALS: BP 122/80
--- NOTE | 2019-08-29 16:10 | NUR ---
PATIENT PACING AROUND THE ROOM. NO SIGNS OF DISTRESS. WILL CONTINUE TO MONITOR
--- NOTE | 2019-08-29 16:16 | NUR ---
SPOKE TO SALAZAR FROM [facility] AND SHE SAID THEY HAVE A ROOM AVAILABLE AT [facility]. THEY SAID [facility] WILL CALL ME FOR REPORT
--- NOTE | 2019-08-29 16:37 | NUR ---
SPOKE TO SALAZAR, ACCORDING TO PATIENTS INSURANCE HE IS UNABLE TO GO TO [facility]. SHE SAID [facility] WILL HAVE A BED AVAILABLE TOMORROW
--- NOTE | 2019-08-29 16:41 | NUR ---
Spoke with Trish VALLADARES updated her with information about [facility] being interested in placing her patient. There are no beds available at this time but there more than likely will be an available bed in the am discharges. Will keep the facility updated.
--- NOTE | 2019-08-29 17:03 | NUR ---
Received updated hold for patient Addendum: 08/29/19 at 1707 by Reina Brown CM sent updated hold to [facility] so all paperwork is complete when bed becomes available
--- NOTE | 2019-08-29 17:09 | NUR ---
ADMINISTERED MEDS. EDUCATED ON SIDE EFFECTS. PATIENT TOLERATED WELL. WILL CONTINUE TO MONITOR
--- NOTE | 2019-08-29 19:20 | NUR ---
gave bedside report to shift superintendent caustic cresylate nurse. patient endorsed in stable condition
[2019-08-29] MEDS: MIRTAZAPINE 15 MG TAB PO SCH (20:37)
[2019-08-29] MEDS: ZOLPIDEM 5 MG TAB PO PRN (21:21)
[2019-08-30] MEDS: LORazepam 1 MG TAB PO SCH ×4 (00:31→17:00)
[2019-08-30 05:33] VITALS: BP 112/7
--- NOTE | 2019-08-30 05:39 | NUR ---
No vacancy still at [facility] , spoke to Renetta at intake then notified TAMMY VALLADARES , will endorsed to AM shift to continue to look for placement.
--- NOTE | 2019-08-30 07:10 | NUR ---
RECEIVED REPORT FROM EFFICIENCY MANAGER NURSE. PT AROUSABLE TO NAME, ORIENTED X4, NO C/O PAIN. PER RN NOEL, PT REFUSED IV. RESPIRATIONS EVEN AND UNLABORED ON RA. ACTIVE BS, SOFT ABD. SKIN IS INTACT, WARM TO TOUCH. SITTER AT BEDSIDE, SAFETY MEASURES IN PLACE, CALL LIGHT WITHIN REACH. REVIEWED POC WITH PT, PT VERBALIZED UNDERSTANDING BUT NEEDS REINFORCEMENT.
[2019-08-30 08:00] VITALS: BP 90/58
[2019-08-30] MEDS: BENZTROPINE 1 MG TAB PO SCH (08:41)
[2019-08-30] MEDS: QUEtiapine FUMARATE 25 MG TAB PO SCH ×3 (08:42→16:38)
[2019-08-30] MEDS: SERTRALINE 50 MG TAB PO SCH (08:42)
[2019-08-30] MEDS: OLANZapine 5 MG TAB PO SCH ×2 (08:42→20:29)
--- NOTE | 2019-08-30 08:42 | NUR ---
ADMINISTERED MEDICATIONS PER ORDER, PT IS AWARE OF INDICATIONS AND POTENTIAL SIDE EFFECTS. APPLIED NICOTINE PATCH ON ANTERIOR, RT UPPER CHEST. EDUCATED PT TO INCREASED WATER/FLUID INTAKE, PT VERBALIZED UNDERSTANDING.
[2019-08-30] MEDS: NICOTINE TRANSD SYS 21 MG/24 HR PATCH TD SCH (08:43)
[2019-08-30] MEDS: GABAPENTIN 100 MG CAP PO SCH ×2 (08:43→20:29)
--- NOTE | 2019-08-30 10:45 | NUR ---
BATHROOM CHECKED AND CLEARED FOR 5150 PT. SITTER ASSISTED PT TO SHOWER ROOM.
--- NOTE | 2019-08-30 11:56 | NUR ---
[facility] s/w [facility] states patient has been approved and still on wait list for next open bed.
--- NOTE | 2019-08-30 12:30 | NUR ---
PT SITTING UP IN BED, HAVING LUNCH. PT HAS NO SIGNS OF DISTRESS AT THIS TIME.
--- NOTE | 2019-08-30 13:27 | NUR ---
Spoke with Katherin to verify patient is still accepted at [facility], she stated yes they are still awaiting a bed. Will continue to monitor and update facility and nursing staff.
--- NOTE | 2019-08-30 14:20 | NUR ---
PT AWAKE, WALKING INSIDE ROOM. PT HAS NO SIGNS OF DISTRESS AT THIS TIME.
[2019-08-30 16:00] VITALS: BP 118/80
--- NOTE | 2019-08-30 16:38 | NUR ---
ADMINISTERED SEROQUEL PER ORDER, PT IS AWARE OF INDICATIONS AND POTENTIAL SIDE EFFECTS.
--- NOTE | 2019-08-30 19:10 | NUR ---
ENDORSED PT TO MEDICAL HOUSEKEEPER NURSE. PT HAS NO SIGNS OF DISTRESS.
--- NOTE | 2019-08-30 19:25 | NUR ---
RECEIVED ENDORSEMENT FROM AM SHIFT NURSE FOR CONTINUITY OF CARE. PATIENT IS IN STABLE CONDITION. ON 5150 HOLD. WITH 1:1 SITTER. AMBULATORY. WITH NO SIGNS AND SYMPTOMS OF PAIN NOR DISCOMFORT. NO IV ACCESS. MD AWARE. STILL AWAITING FOR PSYCHIATRIC BED. BED ON LOW POSITION. WILL CONTINUE TO MONITOR.
[2019-08-30] MEDS: MIRTAZAPINE 15 MG TAB PO SCH (20:29)
[2019-08-30] MEDS: ZOLPIDEM 5 MG TAB PO PRN (20:30)
--- NOTE | 2019-08-30 21:15 | NUR ---
ROUNDS DONE. PATIENT ASLEEP IN BED WITH VISIBLE CHEST RISE AND FALL. NO DISTRESS NOTED. SAFETY ENSURED.
--- NOTE | 2019-08-30 23:10 | NUR ---
CHECKS DONE. PATIENT RESTING IN BED. VISIBLE CHEST RISE AND FALL NOTED. NO SOB NOTED. NO DISTRESS NOTED. SAFETY ENSURED. 1:1 SITTER. WILL CONTINUE TO MONITOR.
[2019-08-31] VITALS: BP 116/76
[2019-08-31] MEDS: LORazepam 1 MG TAB PO SCH ×3 (00:43→12:47)
--- NOTE | 2019-08-31 00:44 | NUR ---
DUE MEDICATION GIVEN. PATIENT CALM AND COOPERATIVE. NO DISTRESS NOTED. SAFETY ENSURED. WILL CONTINUE TO MONITOR.
--- NOTE | 2019-08-31 02:40 | NUR ---
ROUNDS DONE. PATIENT ASLEEP IN BED. NO RESPIRATORY DISTRESS NOTED. VISIBLE CHEST RISE AND FALL. WILL CONTINUE TO MONITOR.
--- NOTE | 2019-08-31 04:30 | NUR ---
PATIENT ASLEEP IN BED AT THIS TIME. VISIBLE CHEST RISE AND FALL NOTED. NO APPARENT DISTRESS NOTED. SAFETY ENSURED. WILL CONTINUE TO MONITOR.
--- NOTE | 2019-08-31 05:05 | NUR ---
Notified Sari VALLADARES , there are still no vacancy at any of the facilities PRADEEP Harmon will endorsed to AM shift to continue to look for placement.
--- NOTE | 2019-08-31 06:20 | NUR ---
DUE MEDICATIONS GIVEN ORDERED. PATIENT CALM AND COOPERATIVE.
--- NOTE | 2019-08-31 07:03 | NUR ---
ENDORSED TO AM SHIFT NURSE IN STABLE CONDITION
--- NOTE | 2019-08-31 07:05 | NUR ---
RECEIVED REPORT FROM OVER THE ROAD DRIVER NURSE. PT AROUSABLE TO NAME, ORIENTED X4, NO C/O PAIN. NO IV IN PLACE, PHYSICIAN NOTIFIED. RESPIRATIONS EVEN AND UNLABORED ON RA. ACTIVE BS, SOFT ABD, LBM 08/29. SKIN IS INTACT, WARM TO TOUCH. SITTER AT BEDSIDE, SAFETY MEASURES IN PLACE, CALL LIGHT WITHIN REACH. REVIEWED POC WITH PT, PT VERBALIZED UNDERSTANDING BUT NEEDS REINFORCEMENT.
[2019-08-31 08:00] VITALS: BP 116/70
--- NOTE | 2019-08-31 08:03 | NUR ---
Received report from manager night. [facility] still following patient.
[2019-08-31] MEDS: QUEtiapine FUMARATE 25 MG TAB PO SCH ×2 (08:59→12:47)
[2019-08-31] MEDS: BENZTROPINE 1 MG TAB PO SCH (08:59)
[2019-08-31] MEDS: SERTRALINE 50 MG TAB PO SCH (08:59)
[2019-08-31] MEDS: GABAPENTIN 100 MG CAP PO SCH (08:59)
[2019-08-31] MEDS: NICOTINE TRANSD SYS 21 MG/24 HR PATCH TD SCH (08:59)
[2019-08-31] MEDS: OLANZapine 5 MG TAB PO SCH (08:59)
--- NOTE | 2019-08-31 08:59 | NUR ---
ADMINISTERED MEDICATIONS PER ORDER, PT AWARE OF INDICATIONS AND POTENTIAL SIDE EFFECTS.
--- NOTE | 2019-08-31 11:00 | NUR ---
PT SITTING AT BEDSIDE, PT HAS NO SIGNS OF DISTRESS. SITTER AT BEDSIDE.
--- NOTE | 2019-08-31 12:47 | NUR ---
ADMINISTERED MEDICATIONS PER ORDER, PT AWARE OF INDICATIONS AND POTENTIAL SIDE EFFECTS. PT HAS NO SIGNS OF DISTRESS.
--- NOTE | 2019-08-31 13:45 | NUR ---
Called the following facilities with no bed availability: [facility], s/w [facility], s/w Radha Bonilla, s/w [facility]ather[facility] Barreto, s/w lauryn Bright, s/w [facility]
--- NOTE | 2019-08-31 14:30 | NUR ---
PT IS AWARE THAT HE WILL BE TRANSFERRED TO [facility] IN [place], [place].
--- NOTE | 2019-08-31 15:50 | NUR ---
PT HAS BEEN DISCHARGED. ALL PAPERWORK SIGNED ALL QUESTIONS ANSWERED. ALL BELONGINGS IN PT POSSESSION. WRISTBAND REMOVED. PT TRANSFERRED OUT OF UNIT VIA GURNEY, TRANSPORT PERSONNEL AT SIDE. PT IS IN STABLE CONDITION.
--- NOTE | 2019-08-31 18:11 | NUR ---
REPORT GIVEN TO EMMETT AT PSYCH FACILITY.
== END 2019-08-31 15:50 | DRG 812 ==
LOC: MED 11:03 → MTU 16:34
PROVIDERS: ADMIT Internal Medicine Pulmonary Disease; ATTEND Internal Medicine Pulmonary Disease
DX: T47.6X2A Poisoning by antidiarrheal drugs, intentional self-harm, initial encounter (principal); R45.851 Suicidal ideations; F31.4 Bipolar disorder, current episode depressed, severe, without psychotic features; R45.850 Homicidal ideations; F29 Unspecified psychosis not due to a substance or known physiological condition; F41.9 Anxiety disorder, unspecified; F43.10 Post-traumatic stress disorder, unspecified; Y92.89 Other specified places as the place of occurrence of the external cause; Z56.0 Unemployment, unspecified
CPT/HCPCS: 36415; 80053; 80305; 81001; 85025; 87081; 93005; 99285; G0480; G0482; J2060; Q0163

== ENCOUNTER 2020-10-06 15:00 | Emergency (ER) | payer MEDICAID ==
[~2020-10-06] VITALS: Ht 185.4 cm; Wt 86.2 kg
[~2020-10-06 15:00] MED LIST: BENZ2TAB27 PO; GABA-640 PO; MIRT-91 PO; OLAN20TA1 PO; QUET25TA PO
[2020-10-06 15:04] VITALS: BP 134/87
[2020-10-06] MEDS ORDERED: OLANZapine 5 MG ODT SL ONE (15:10)
--- NOTE | 2020-10-06 15:13 | NUR ---
30 y/o male [place] from [place] for hearing voices and meth use today. Denies suicidal/homicidal ideation. Awake and alert. Admits to meth ingestion at 0900 medhx: schizophrenia, substance abuse
--- NOTE | 2020-10-06 15:25 | NUR ---
Dr. Miranda is evaluating the patient at bedside.
--- NOTE | 2020-10-06 15:36 | NUR ---
Collected MONAID KHOI swab, gave to builder's labourer.
--- NOTE | 2020-10-06 15:45 | NUR ---
Pt ambulated to restroom with a steady gait.
--- NOTE | 2020-10-06 15:50 | NUR ---
UA not collected at this time. Pt walked to [facility] eating crackers and drinking orange juice.
[2020-10-06 15:51] LABS: BASOPHILS % (AUTO) 0.3 % (0.0-2.0); EOSINOPHILS # (AUTO) 0.1 K/uL (0-0.4); EOSINOPHILS % (AUTO) 0.8 % (0.0-4.0); HEMATOCRIT 41.3 % (36-52); LYMPHOCYTES # (AUTO) 1.6 K/uL (2.0-11.5); LYMPHOCYTES % (AUTO) 23.6 % (20.5-51.1); MEAN CORPUSCULAR HEMOGLOBIN 32 pg (27-31); MEAN CORPUSCULAR HGB CONC 34 g/dL (33-37); MEAN CORPUSCULAR VOLUME 95.1 fL (80-94); MONOCYTES # (AUTO) 0.8 K/uL (0.8-1.0); MONOCYTES % (AUTO) 11.3 % (1.7-9.3); NEUTROPHILS # (AUTO) 4.4 K/uL (1.8-7.7); PLATELET COUNT (AUTO) 139 K/uL (140-450); RED BLOOD CELL COUNT(AUTO) 4.34 MIL/uL (4.20-6.10); RED CELL DISTRIBUTION WIDTH 12.5 % (11.6-13.7); WHITE BLOOD COUNT (AUTO) 6.9 K/uL (4.8-10.8)
[2020-10-06 16:08] LABS: ACETAMINOPHEN < 0.5 ug/ml (10-30); ALBUMIN 4.2 g/dL (3.4-5.0); ANION GAP 8.6 (8-16); ASPARTATE AMINOTRANSFERASE 39 U/L (15-37); CHLORIDE 105 mmol/L (98-107); GFR ARICAN-AMERICAN 112 mL/min (>90); GLUCOSE 78 mg/dL (74-106); POTASSIUM 3.6 mmol/L (3.5-5.1); SALICYLATE 3.1 mg/dL (2.8-20.0); SODIUM SERUM 142 mmol/L (136-145); TOTAL BILIRUBIN 0.3 mg/dL (0.0-1.0); UREA NITROGEN, BLOOD 14 mg/dL (7-18)
[2020-10-06] MEDS ORDERED: chlordiazePOXIDE 25 MG CAP PO SCH ×2 (17:00)
[2020-10-06 19:54] VITALS: BP 134/87
== END 2020-10-06 19:54 | disposition home or self-care (01) ==
LOC: MED 15:00
DX: F15.10 Other stimulant abuse, uncomplicated (principal); F10.20 Alcohol dependence, uncomplicated; F12.90 Cannabis use, unspecified, uncomplicated; Z79.899 Other long term (current) drug therapy; Z20.828 Contact with and (suspected) exposure to other viral communicable diseases
CPT/HCPCS: 36415; 80053; 85025; 87426; 99283; G0480; G0482

== ENCOUNTER 2021-04-18 01:56 | Emergency (ER) | payer MEDICAID ==
[~2021-04-18] VITALS: Ht 190.5 cm; Wt 59.4 kg
[2021-04-18 01:56] VITALS: BP 151/87
[2021-04-18 02:53] VITALS: BP 151/87
== END 2021-04-18 02:53 | disposition home or self-care (01) ==
LOC: MED 01:56
DX: F11.10 Opioid abuse, uncomplicated (principal); Z00.00 Encounter for general adult medical examination without abnormal findings; Z79.899 Other long term (current) drug therapy; Z59.0 Homelessness
CPT/HCPCS: 99283

== ENCOUNTER 2021-05-05 03:28 | Emergency (ER) | payer MEDICAID ==
[~2021-05-05] VITALS: Ht 190.5 cm; Wt 75.7 kg
[2021-05-05 03:28] VITALS: BP 103/67
[2021-05-05 04:05] VITALS: BP 103/67
== END 2021-05-05 04:05 ==
LOC: MED 03:28
DX: Z02.89 Encounter for other administrative examinations (principal); F17.210 Nicotine dependence, cigarettes, uncomplicated; Z86.19 Personal history of other infectious and parasitic diseases
CPT/HCPCS: 99283

== ENCOUNTER 2022-09-04 09:13 | Inpatient (IN) | payer MEDICAID ==
[~2022-09-04] VITALS: Ht 190.5 cm; Wt 67.6 kg
[2022-09-04 09:25] VITALS: BP 106/51
--- NOTE | 2022-09-04 09:40 | NUR ---
PT AMB WITH ASSISTED TO BED 11.
--- NOTE | 2022-09-04 09:43 | NUR ---
32/M WALKED IN ACCOMPANIED BY MOM C/O LEFT HAND PAIN AND LEFT LEG SWELLING. MOM STATES PT HAS ABSCESS ON LEFT HAND ONSET 3 DAYS. PT ALSO PRESENTS WITH COUGH. MOM STATES COUGH ONSET 5 DAYS. PT'S MOM STATES PT WAS EVALUATED AT [facility] FOR SAME S/SX AND WAS DC FOR OPIOID USE. MOM STATES PT USED METH 2 DAYS AGO. PT IS SLOW TO SPEAK BUT RESPONDS TO QUESTIONS. MOM STATES PT TOOK SEROQUEL LAST NIGHT. VITALS STABLE, ON ROOM AIR, NO ACUTE DISTRESS. PMH: DRUG ABUSE, HEP C
[2022-09-04] MEDS ORDERED: VANCOMYCIN 1,000 MG in DEXTROSE 5% 250 ML IV ONE (09:55)
[2022-09-04] MEDS ORDERED: NACL 0.9% 1,000 ML IV ONE (09:55)
[2022-09-04] MEDS ORDERED: PIPERACILLIN/TAZOBACTAM 3.375 GM in DEXTROSE 5% 50 ML IV ONE (09:55)
--- NOTE | 2022-09-04 09:58 | NUR ---
COVID AND FLU SWAB COLLECTED AND SENT TO LAB
--- NOTE | 2022-09-04 10:02 | NUR ---
XR AT BEDSIDE
--- NOTE | 2022-09-04 10:08 | NUR ---
EKG DONE ATBEDSIDE
--- NOTE | 2022-09-04 10:15 | NUR ---
IV ESTABLISHED TO RIGHT AC WITH 20G. BLOOD DRAWN AND SENT TO LAB. URINE COLLECTED
[2022-09-04] MEDS ORDERED: PIPERACILLIN/TAZOBACTAM 3.375 GM VIAL IV ONE (10:17)
--- NOTE | 2022-09-04 10:30 | NUR ---
LANA JO: RORY [phone]
[2022-09-04] MEDS ORDERED: VANCOMYCIN 1,000 MG VIAL ONE (10:40)
[2022-09-04 10:43] LABS: APPEARANCE,URINE CLEAR (CLEAR); BILIRUBIN,URINE 1+ (NEGATIVE); BLOOD, URINE NEGATIVE (NEGATIVE); COLOR,URINE YELLOW (YELLOW); LEUKOCYTE ESTERASE ,URINE NEGATIVE (NEGATIVE); NITRITE, URINE NEGATIVE (NEGATIVE); UGLUCOSE NEGATIVE (NEGATIVE)
[2022-09-04 10:43] LABS: BASOPHILS % (AUTO) 0.1 % (0.0-2.0); EOSINOPHILS % (AUTO) 0.1 % (0.0-4.0); HEMOGLOBIN 10.9 g/dL (12.0-18.0); LYMPHOCYTES # (AUTO) 0.9 K/uL (2.0-11.5); LYMPHOCYTES % (AUTO) 5.5 % (20.5-51.1); MEAN CORPUSCULAR HEMOGLOBIN 31 pg (27-31); MEAN CORPUSCULAR HGB CONC 33 g/dL (33-37); MEAN CORPUSCULAR VOLUME 94.3 fL (80-94); MONOCYTES # (AUTO) 0.7 K/uL (0.8-1.0); MONOCYTES % (AUTO) 4.5 % (1.7-9.3); NEUTROPHILS # (AUTO) 14.4 K/uL (1.8-7.7); NEUTROPHILS % (AUTO) 89.8 % (42.2-75.2); PLATELET COUNT (AUTO) 400 K/uL (140-450); RED CELL DISTRIBUTION WIDTH 14.1 % (11.6-13.7); WHITE BLOOD COUNT (AUTO) 16.1 K/uL (4.8-10.8)
[2022-09-04 11:02] LABS: PROTHROMBIN TIME 10.1 secs (10.8-13.4)
--- NOTE | 2022-09-04 11:12 | NUR ---
KATIE MORILLO AT BEDSIDE FOR ABSCESS DRAINAGE TO LEFT HAND
[2022-09-04 11:14] LABS: ALBUMIN 2.2 g/dL (3.4-5.0); ANION GAP 15.4 (8-16); CARBON DIOXIDE 28.6 mmol/L (21-32); TOTAL BILIRUBIN 0.7 mg/dL (0.0-1.0)
[2022-09-04 11:18] LABS: SALICYLATE 4.4 mg/dL (2.8-20.0)
[2022-09-04 11:22] LABS: RBC,URINE NONE SEEN /HPF (0-5); WBC,URINE 0-5 /HPF (0-5)
[2022-09-04 11:24] LABS: BARBITURATE, URINE NEGATIVE ng/ml (NEG <=200); BENZODIAZEPINE, URINE NEGATIVE ng/mL (NEG <=200); CANNABINOID, URINE POSITIVE ng/mL (NEG <=50); COCAINE, URINE NEGATIVE ng/mL (NEG <=300); OPIATE, URINE POSITIVE ng/mL (NEG <=2000); PHENCYCLIDINE SCREEN,URINE NEGATIVE ng/mL (NEG <=25)
--- NOTE | 2022-09-04 11:24 | NUR ---
Patient noted to have existing wounds upon arrival to ER. Photos taken of wound and placed in chart. Physician informed.
[2022-09-04 11:26] LABS: ACETAMINOPHEN < 0.5 ug/ml (10-30)
[2022-09-04] MEDS: NACL 0.9% 1,000 ML IV SCH ×2 (14:20→22:20)
[2022-09-04] MEDS ORDERED: ONDANSETRON 4 MG/2 ML VIAL IVP PRN (14:20)
[2022-09-04] MEDS ORDERED: VANCOMYCIN PER PHARMACY MC PRN (14:25)
--- NOTE | 2022-09-04 14:40 | NUR ---
Patient will be admitted to care of DR LOOMIS. Admited to TELE. Will go to room 119B. Belongings list completed. Report to ABDIAZIZ VALLADARES.
--- NOTE | 2022-09-04 15:00 | NUR ---
RECEIVED REPORT FROM ER NURSE, LEN. PT A/O X4. NO SOB NOTED. NON-PRODUCTIVE COUGH. RAC #20 SL. DENIES PAIN. REGULAR DIET. STRICT I & O. NEEDS ALL MET AT THIS TIME. ALL SAFETY MEASURES IN PLACE.
[2022-09-04 18:00] VITALS: BP 103/50
[2022-09-04] MEDS: ACETAMINOPHEN 325 MG TAB PO PRN (18:27)
--- NOTE | 2022-09-04 18:27 | NUR ---
PRN TYLENOL GIVEN. ICE PACKS PROVIDED FOR PT. PT'S MOM AND DAD AT BEDSIDE FEEDING PT. NEEDS ALL MET. ALL QUESTIONS ANSWERED. ALL SAFETY MEASURES IN PLACE.
--- NOTE | 2022-09-04 19:21 | NUR ---
REPORT GIVEN TO NIGHTSMNFT NURSE JAYRO FOR CONTINUITY OF CARE.
--- NOTE | 2022-09-04 19:22 | NUR ---
RECD. RESTING IN BED, EYES CLOSED, A/OX2. RESPIRATION EVEN AND UNLABORED. IV OF NS INFUSING AT 125 ML/HR, RIGHT FOREARM G20. RESPIRATION EVEN AND UNLABORED. AFEBRILE -98.8 F. ABLE TO AMBULATE TO THE BR TO VOID. WITH RIGHT FOOT BLISTER/CELLULITIS AND LEFT WRIST ABSCESS COVERED WITH DRESSING DRY AND INTACT. ON IV ANTIBIOTICS. DENIES PAIN 0/10. MOTHER AT THE BEDSIDE.
[2022-09-04 20:00] VITALS: BP 100/45
[2022-09-04] MEDS: PIPERACILLIN/TAZOBACTAM 3.375 GM in DEXTROSE 5% 50 ML IV SCH (20:30)
--- NOTE | 2022-09-04 20:40 | NUR ---
IV ZOSYN ADMINISTERED VIA IVPB TO IV IN RIGHT WRIST AREA.
[2022-09-04] MEDS ORDERED: VANCOMYCIN 1,000 MG in DEXTROSE 5% 250 ML IV SCH (22:00)
--- NOTE | 2022-09-04 22:30 | NUR ---
SLEEPING COMFORTABLY IN BED, IV VANCOMYCIN INFUSED BY JACQUELYN AMES.
[2022-09-05] VITALS: BP 103/58
--- NOTE | 2022-09-05 02:00 | NUR ---
SLEEPING COMFORTABLY IN BED, RESPIRATION EVEN AND UNLABORED.
[2022-09-05 04:00] VITALS: BP 109/55
--- NOTE | 2022-09-05 04:00 | NUR ---
AFEBRILE. REQUESTED FOR SNACK GIVEN.
[2022-09-05] MEDS: PIPERACILLIN/TAZOBACTAM 3.375 GM in DEXTROSE 5% 50 ML IV SCH ×3 (04:17→21:29)
--- NOTE | 2022-09-05 05:00 | NUR ---
AMBULATED TO THE TO VOID. WITH SOME BLEEDING IN HIS RIGHT TOE, CLEANSED WITH NS AND WRAP WITH SMALL GAUZE.
[2022-09-05] MEDS: NACL 0.9% 1,000 ML IV SCH ×4 (05:09→23:10)
[2022-09-05 07:04] LABS: BASOPHILS % (AUTO) 0.2 % (0.0-2.0); EOSINOPHILS % (AUTO) 0.3 % (0.0-4.0); HEMATOCRIT 30.2 % (36-52); HEMOGLOBIN 10.2 g/dL (12.0-18.0); LYMPHOCYTES # (AUTO) 0.7 K/uL (2.0-11.5); LYMPHOCYTES % (AUTO) 4.9 % (20.5-51.1); MEAN CORPUSCULAR HEMOGLOBIN 32 pg (27-31); MEAN CORPUSCULAR HGB CONC 34 g/dL (33-37); MEAN CORPUSCULAR VOLUME 93.7 fL (80-94); MONOCYTES # (AUTO) 0.8 K/uL (0.8-1.0); MONOCYTES % (AUTO) 5.7 % (1.7-9.3); NEUTROPHILS # (AUTO) 12.5 K/uL (1.8-7.7); NEUTROPHILS % (AUTO) 88.9 % (42.2-75.2); PLATELET COUNT (AUTO) 353 K/uL (140-450); RED BLOOD CELL COUNT(AUTO) 3.22 MIL/uL (4.20-6.10); RED CELL DISTRIBUTION WIDTH 13.9 % (11.6-13.7); WHITE BLOOD COUNT (AUTO) 14.1 K/uL (4.8-10.8)
[2022-09-05 07:21] LABS: ALBUMIN 1.6 g/dL (3.4-5.0); ANION GAP 5.8 (8-16); CARBON DIOXIDE 33.4 mmol/L (21-32); CREATININE 0.7 mg/dL (0.6-1.3); MAGNESIUM 1.8 mg/dL (1.8-2.4); POTASSIUM 3.2 mmol/L (3.5-5.1); TOTAL BILIRUBIN 0.5 mg/dL (0.0-1.0)
[2022-09-05 08:00] VITALS: BP 122/56
--- NOTE | 2022-09-05 10:23 | NUR ---
PATIENT HAS BEEN SCREENED AND CATEGORIZED MODERATE NUTRITION RISK. PATIENT WILL BE SEEN WITHIN 3-5 DAYS OF ADMISSION. 09/04/22-09/09/[address]DA SORTO [address]
[2022-09-05] MEDS: VANCOMYCIN 1,000 MG in DEXTROSE 5% 250 ML IV SCH ×2 (11:16→20:12)
[2022-09-05 12:00] VITALS: BP 117/60
[2022-09-05] MEDS ORDERED: POTASSIUM CHLORIDE 10 MEQ TABER PO SCH (12:51)
--- NOTE | 2022-09-05 15:33 | NUR ---
ATTEMPTED TO MEET WITH PT AT BEDSIDE TO COMPLETE ASSESSMENT, HOWEVER, PT STRUGGLED TO STAY AWAKE AND PARTICIPATE IN ASSESSMENT. SW TO FOLLOW.
[2022-09-05 16:00] VITALS: BP 113/69
--- NOTE | 2022-09-05 19:18 | NUR ---
ENDORSE PATIENT TO PM SHIFT NURSE WHILE PATIENT REST IN BED, FATHER AT BEDSIDE. PIV R. FOREARM INFUSING NS @125ML/HR. PATIENT IS NEWLY ON CONTACT ISOLATION FOR GREM POSITIVE COCCI IN BLOOD CULTURE. PCP AWARE
--- NOTE | 2022-09-05 19:20 | NUR ---
RECEIVED PT FROM AM NURSE FOR CONTINUITY OF CARE. PT IS STABLE
[2022-09-05 20:00] VITALS: BP 119/55
[2022-09-05] MEDS: MORPHINE SULFATE 2 MG/ML SYR IVP PRN (20:13)
[2022-09-06] VITALS: BP 122/63
--- NOTE | 2022-09-06 01:00 | NUR ---
PATIENT ASLEEP, NO DISTRESS NOTED,ALL SAFETY MEASURES IN PLACE, CALL LIGHT WITHIN EASY REACH
[2022-09-06 04:00] VITALS: BP 114/69
[2022-09-06] MEDS: VANCOMYCIN 1,000 MG in DEXTROSE 5% 250 ML IV SCH ×3 (04:33→20:26)
[2022-09-06] MEDS: PIPERACILLIN/TAZOBACTAM 3.375 GM in DEXTROSE 5% 50 ML IV SCH ×3 (05:03→21:00)
--- NOTE | 2022-09-06 06:00 | NUR ---
CHANGED DRESSING ON RT FOOT CELLULITIS,TOLERATED WELL
[2022-09-06 06:07] LABS: CARBON DIOXIDE 34.7 mmol/L (21-32); CREATININE 0.6 mg/dL (0.6-1.3); POTASSIUM 3.7 mmol/L (3.5-5.1)
[2022-09-06] MEDS: NACL 0.9% 1,000 ML IV SCH ×3 (06:20→22:20)
[2022-09-06 08:00] VITALS: BP 113/55
[2022-09-06 12:00] VITALS: BP 115/55
--- NOTE | 2022-09-06 12:05 | NUR ---
WOUND CARE NOTE: WOUND ASSESSMENT DONE TO THIS 32 Y/O PT. AAX4. POC DISCUSSED WITH PT. AND PRIMARY RN PAULA, INFORM DR. LOOMIS OF RECOMMENDATIONS. -RIGHT AND LEFT HANDS/FOREARMS MULTIPLE DRY SCABBING SKIN FROM NEEDLE PUNCTURES, MONROE-WOUND SKIN DRY AND INTACT -LEFT LOWER LEG ABSCESS INFECTED WOUND 3X2CM WOUND BED 100% BROWN/YELLOW, MODERATE AMOUNT PURULENT DRAINAGE, MILD ODOR, MONROE WOUND SKIN ERYTHEMA, WITH INDURATION PAIN 3/10. -RIGHT HALLUX TOE, PLANTAR ASPECT OF FOOT AND RIGHT HEEL MULTIPLE RUPTURES BLISTERING SKIN WITH LARGEST TO RIGHT HEEL 2X3X0.1CM, WOUND BED PALE PINK. MOIST, MONROE WOUND SKIN MOIST, INTACT, NO ODOR, PAIN 0/10 RECOMMENDATIONS: -WOUND CX TO LLE -CT SCAN TO LLE -SURGEON CONSULT LLE ABSCESS -CLEANSE RIGHT FOOT/TOE/HEEL WITH NS. PAT DRY, APPLY XEROFORM DRESSING, COVER WITH DRY DRESSING 3X/WK ON MWF AND PRN IF SOILING -PAINT HANDS/FOREARMS SCABS WITH BETADINE SWAP STICKS BID AND CLIENT SERVICES ASSISTANT -CLEANSE LLE WOUND WITH NS, PAT DRY, APPLY THERAHONEY GEL TO WOUND BED PAT, COVER WITH DRY DRESSING QD AND PRN IF SOILING
[2022-09-06] MEDS: GAUZE TP SCH (13:00)
[2022-09-06] MEDS: THERAHONEY GEL 42.5 GM TP SCH (13:00)
--- NOTE | 2022-09-06 14:25 | NUR ---
DC PLANNING SW MET WITH PATIENT AND PATIENT MOTHER AT BEDSIDE TO COMPLETE ASSESSMENT. PATIENT PROVIDED SW WITH PERMISSION TO COMPLETE ASSESSMENT WITH MOM IN ROOM. PATIENT REPORTS CHRONIC HX OF HOMELESSNESS SPANNING 6 YRS. PATIENT REPORTS HE TYPICALLY STAYS IN [facility]. PATIENT IDENTIFIED PER SANDRO, MOTHER, AND KONG FUENTES, FATHER, EMERGENCY CONTACTS. PATIENT REPORTS TAKING MEDICATION AND DENIES BARRIERS IN ACCESSING NEEDED MEDICATIONS. PT MOTHER REPORTS ASSISTING PATIENT IN ACQUIRING. PATIENT REPORTS RECEIVING MEDICATION FROM [facility] ON [address] IN [place], WHEN NEEDED. PATIENT REPORTS BEING INDEPENDENT IN ALL ACTIVITIES AND DENIES USE OF DME. PATIENT REPORTS MENTAL HEALTH HX OF SCHIZO AFFECTIVE D/O AND PTSD. 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 PATIENT REPORTS PSYCHIATRIC HOSPITALIZATION 6 MONTHS AGO AND WAS ADMITTED TO [facility]. PATIENT REPORTS ON AND OFF HX OF INCARCERATION. PATIENT REPORTS RECENT RELEASE FROM [facility], 2.5 WEEKS AGO. PATIENT REPORTS CHRONIC HX OF SUBSTANCE USE, PRIMARY SUBSTANCE OF USE; HEROINE, AMPHETAMINES, MARIJUANA. PT REPORTS THAT HE HAS NOT ENGAGED IN HEROINE/OPIATE USE IN 1.5 YRS, DESPITE TESTING POSITIVE AT ADMISSIONS. PATIENT REPORTS LAST AMPHETAMINE USE 3-4 DAYS AGO. PATIENT REPORTS ATTEMPTING REHAB HOWEVER, REPORTS NOT FINDING IN HELPFUL. PT REPORTS HE JONES NOT LIKE REHAB. PATIENT REPORTS METH USE STARTED WHEN HE WAS 15 YRS OLD AND HAS USED ON AND OFF SINCE. PATIENT REPORTS MARIJUANA USE FREQUENTLY. PATIENT REPORTS RECEIVING SERVICES FROM [employer], LAST APPT WAS FRIDAY. PATIENT REPORTS BEING A PATIENT OF [employer] ON AND OFF. SW ENCOURAGED PATIENT TO UTILIZE [employer] OFFERS VARIOUS PROGRAMS THAT AID IN SUBSTANCE USE, HOMELESSNESS WELL MENTAL HEALTH SERVICES. SW SPOKE TO PATIENT ABOUT OYSTER SORTER USE OF SUBSTANCE USE AND MOTIVATED PATIENT TO UTILIZE RESOURCES PROVIDED. PATIENT AWARE OF REQUIREMENT FOR SHELTERS AND REPORTS HE IS NOT CURRENTLY READY TO GIVE UP [employer] USE. SW ENCOURAGED PATIENT TO RECONSIDER SO THAT HE CAN UTILIZE SHELTERS IN COMMUNITY. PT;S MOTHER REPORTS PATIENT UNABLE TO STAY WITH FAMILY DUE TO CURRENT SUBSTANCE USE, MOTHER REPORTS PT FATHER HOME HAS A PROTECTIVE ORDER AGAINST PT, PT UNABLE TO GO TO FATHERS HOME. SW HIGHLY ENCOURAGED PATIENT TO SPEAK WITH HIS PARENTS AND TO RECONSIDER USE SO THAT HE MAY UTILIZE COMMUNITY LONG TERM, PATIENT SIMPLY NODDED HIS HEAD. PT DENIES HX OF DIABETES, HH, DIALYSIS TX. PT STRUGGLED TO IDENTIFY DC PLAN, SW AGAIN ENCOURAGED PT TO RECONSIDER USE SO THAT HE MAY UTILIZE SHELTERS IN THE SURROUNDING AREAS. Addendum: 09/06/22 at 1437 by Francisco Correa SS Amended: Links added.
[2022-09-06 16:00] VITALS: BP 115/55
--- NOTE | 2022-09-06 16:31 | NUR ---
DC [age]ANN[age] YRS OLD MALE HOMELESS PATIENT WAS ADMITTED FROM ER WITH A DX OF LEFT WRIST CELLULITIS, PNEUMONIA. PATIENT HAS A HX OF HEP C ,IV DRUG USE. CXR SHOWED MULTIFOCAL PNEUMONIA. RAPID COVID TEST NEGATIVE. ADMINISTERED IVF, IV ABX VANCOMYCIN AND ZOSYN. [employer] LANGUAGE PROFESSOR TO EVALUATE HIM FOR HOMELESSNESS. MOTHER AT THE BED SIDE WILL DISCUSS THE DC PLAN. CM TO FOLLOW
--- NOTE | 2022-09-06 19:45 | NUR ---
RECEIVED REPORT FROM DAY SHIFT NURSE. PT IS AWAKE ON RM AIR WITH NO S/S OF DISTRESS AT THIS TIME. FAMILY IS AT BEDSIDE. PT IS AMBULATORY. IV SITE RFA 20G INFUSING NS@125CC/HR. SKIN IS NOT INTACT. MULTIPLE SCABS ON R TOES R HEEL BLISTER EXPLODED DRESSING D&I. L FENTON OPEN WOUND DRAINING PURULENT FLUID. ANAEROBIC CULTURE COLLECTED AND SENT TO LAB. PLAN OF CARE DISCUSSED. WILL CONTINUE TO MONITOR.
[2022-09-06] MEDS: MORPHINE SULFATE 2 MG/ML SYR IVP PRN (20:23)
--- NOTE | 2022-09-06 20:25 | NUR ---
PT C/O 05/05 GENERALIZED PAIN. MEDICATED WITH MSO4 2MG IVP. REASSESSMENT @ 2125 PAIN ZERO. PT ASLEEP RR EVEN AND UNLABORED WITH EQUAL CHEST RISE NAD.
--- NOTE | 2022-09-06 21:40 | NUR ---
DRESSING TO Marline FENTON OPEN WD CHANGED DRAINING SANGUINOUS FLUID. PT REPOSITIONED HIMSELF IN BED. LEGS ELEVATED ON PILLOWS. ABX THERAPY CONTINUES. WILL CLOSELY MONITOR PT'S WOUNDS.
[2022-09-06 22:08] VITALS: BP 128/69
--- NOTE | 2022-09-06 23:00 | NUR ---
L FENTON DRESSING SATURATED AGAIN. WD CLEANSED AND NEW DRESSING APPLIED. REMINDED PT TO KEEP LEGS ELEVATED ON PILLOWS WHEN IN BED. R FOOT /HEEL WD DRESSING D&I. FREQ ROUNDS TO MONITOR WOUNDS.
[2022-09-07] MEDS: GAUZE TP SCH ×2 (00:10→13:00)
--- NOTE | 2022-09-07 01:30 | NUR ---
FREQ ROUNDS PT SITTING UP AT EDGE OF BED IN DEPENDENT POSITION. L FENTON DRESSING SATURATED SANGUINOUS FLUID RUNNING DOWN LEG. PT GOT BACK IN BED. ATTEMPTED TO CLEAN LEG AND FOOT. PT STATED "THAT TICKLES AND HURTS AT THE SAME TIME." CLEANSED LEFT LOWER LEG ABD PAD APPLIED AND WRAPPED WITH ANDRÉS WRAP. WILL CONTINUE WITH FREQ ROUNDS.
[2022-09-07 04:00] VITALS: BP 129/60
[2022-09-07] MEDS: PIPERACILLIN/TAZOBACTAM 3.375 GM in DEXTROSE 5% 50 ML IV SCH (04:02)
[2022-09-07] MEDS: VANCOMYCIN 1,000 MG in DEXTROSE 5% 250 ML IV SCH ×3 (05:00→20:00)
[2022-09-07] MEDS: NACL 0.9% 1,000 ML IV SCH ×3 (06:20→21:49)
[2022-09-07 06:22] LABS: ANION GAP 5.5 (8-16); CARBON DIOXIDE 32.1 mmol/L (21-32); CREATININE 0.7 mg/dL (0.6-1.3); POTASSIUM 3.6 mmol/L (3.5-5.1)
--- NOTE | 2022-09-07 06:40 | NUR ---
PT RESTING IN BED. NAD. RR EVEN AND UNLABORED WITH SYMMETRICAL CHEST RISE. WILL ENDORSE TO DAY SHIFT TO FOLLOW UP RE: WOUND CARE ORDERS. ENDORSED REPORT TO SUZANNE RN FOR CONTINUITY OF CARE. PT IS STABLE. ALL NEEDS MET THROUGHOUT THE SHIFT.
--- NOTE | 2022-09-07 07:10 | NUR ---
RECEIVED BEDSIDE REPORT FROM INVENTORY MANAGEMENT SPECIALIST JACQUELYN WATERS FOR CONTINUITY OF CARE. PT A/OX3-4, SR ON MONITOR. 20G IV TO R FA INFUSING NS AT 125 ML/HR. MILD WEAKNESS THROUGHOUT. SMALL SCABS SCATTERED THROUGHOUT UPPER AND LOWER EXTREMITIES. WOUND DRESSINGS INTACT TO R FOOT AND L FENTON. STANDARD PRECAUTION. CALL LIGHT WITHIN REACH. BED LOCKED AND IN LOWEST POSITION.
[2022-09-07 08:00] VITALS: BP 123/72
--- NOTE | 2022-09-07 10:00 | NUR ---
MOM AND DAD ALTERNATING VISITS AT BEDSIDE. UPDATED ON POC, ALL QUESTIONS ANSWERED.
[2022-09-07 12:00] VITALS: BP 127/71
[2022-09-07] MEDS: THERAHONEY GEL 42.5 GM TP SCH (13:00)
[2022-09-07 16:00] VITALS: BP 124/79
--- NOTE | 2022-09-07 16:00 | NUR ---
CHANGED WOUND DRESSINGS. LEFT FENTON WOUND IS OPEN AND SLOUGHING. SEVERAL WOUNDS TO RIGHT FOOT/HEEL, OPEN BLISTERS WITH MILD SLOUGHING. CLEANSED WITH NS AND PAT DRY, APPLIED THERAHONEY AND WRAPPED WITH GAUZE DRESSING PER ORDER.
--- NOTE | 2022-09-07 18:29 | NUR ---
PT RESTING QUIETLY IN BED, RESPIRATIONS EVEN AND UNLABORED. ALL COMFORT NEEDS MET AT THIS TIME.
--- NOTE | 2022-09-07 18:50 | NUR ---
PT REQUESTED TO CONTINUE HOME MED SEROQUEL 300MG QHS. CONSULTED DR. LOOMIS WHO ORDERED SEROQUEL 100MG QHS TO START.
--- NOTE | 2022-09-07 19:17 | NUR ---
ENDORSED BEDSIDE REPORT TO JACQUELYN GILLIAM FOR CONTINUITY OF CARE.
--- NOTE | 2022-09-07 19:21 | NUR ---
CONSULTED DR. LOOMIS FOR NICOTINE PATCH PER PT REQUEST. ORDER FOR 21G Q24H.
--- NOTE | 2022-09-07 19:35 | NUR ---
RECEIVED REPORT FROM DAY SHIFT NURSE MARU FOR CONTINUITY OF CARE. PATIENT IS A&O X3-4. PATIENT IS ON ROOM AIR, BREATHING IS NORMAL WITH SYMMETRICAL RISE AND FALL OF CHEST. IV IS A 20G RIGHT FOREARM, RUNNING NS AT 125. PATIENT IS SLEEPING, LYING SUPINE ON SIDE. BED IS IN LOWEST POSITION, WHEELS LOCKED, CALL LIGHT IN PLACE. WILL CONTINUE TO OBSERVE PATIENT.
[2022-09-07 20:00] VITALS: BP 114/63
[2022-09-07] MEDS: QUEtiapine FUMARATE 100 MG TAB PO SCH (21:09)
[2022-09-07] MEDS: MORPHINE SULFATE 2 MG/ML SYR IVP PRN (21:09)
[2022-09-07] MEDS: NICOTINE TRANSD SYS 21 MG/24 HR PATCH TD SCH (21:58)
--- NOTE | 2022-09-07 22:00 | NUR ---
2000 IV VANCOMYCIN WAS ADMINISTERED TO PATIENT. PATIENT COMPLAINED OF IV LEAKING. ASSESSED IV, IV WAS LEAKING FROM INSERTION; PATIENT NEEDS NEW IV. ATTEMPTED TO PLACE IV INTO PATIENT WITH ASSISTANCE FROM JACQUELYN MCNULTY, WAS UNABLE TO PLACE IV. JACQUELYN MCNULTY ATTEMPTED AND WAS SUCCESSFUL, NEW IV IS A 22G IN THE RIGHT HAND. VANCO WAS RESTARTED AND RUNNING SUCCESSFULLY. PATIENT COMPLAINED OF PAIN 7/10. PATIENT'S VITALS WERE WNL; CHECKED CHART AND SAW MORPHINE WAS APPROPRIATE TO ADMINISTER. PATIENT TOLERATED MEDICATION WELL. ADMINISTERED 2100 MEDICATION SEROQUEL TO PATIENT. PATIENT WAS ABLE TO SWALLOW WITHOUT ANY DIFFICULTY. ADMINISTERED NICOTINE PATCH TO PATIENT, APPLYING TO HIS LEFT SHOULDER BLADE. PATIENT THANKED ME. BREATHING WAS NORMAL WITH SYMMETRICAL RISE AND FALL OF CHEST. WILL CONTINUE TO OBSERVE PATIENT.
[2022-09-08] VITALS: BP 109/61
[2022-09-08] MEDS: GAUZE TP SCH ×2 (01:00→13:00)
--- NOTE | 2022-09-08 01:00 | NUR ---
LOOKED IN ON PATIENT. PATIENT WAS SLEEPING, LYING SUPINE. BREATHING WAS NORMAL WITH SYMMETRICAL RISE AND FALL OF CHEST. WILL CONTINUE TO OBSERVE PATIENT.
--- NOTE | 2022-09-08 01:00 | NUR ---
ASSESS PATIENT'S DRESSING. DRESSING WAS DRY AND INTACT. WILL CONTINUE TO OBSERVE PATIENT.
--- NOTE | 2022-09-08 02:50 | NUR ---
LOOKED IN ON PATIENT. PATIENT WAS SLEEPING, LYING SUPINE. BREATHING WAS NORMAL WITH SYMMETRICAL RISE AND FALL OF CHEST. BED WAS IN LOWEST POSITION, WHEELS LOCKED, CALL LIGHT IN PLACE. WILL CONTINUE TO OBSERVE PATIENT.
[2022-09-08 04:00] VITALS: BP 108/57
[2022-09-08] MEDS: VANCOMYCIN 1,000 MG in DEXTROSE 5% 250 ML IV SCH ×3 (04:45→20:48)
--- NOTE | 2022-09-08 05:00 | NUR ---
ADMINISTERED VANCO IVPB TO PATIENT. IVPB WAS STARTED SUCCESSFULLY WITHOUT ANY ISSUES. PATIENT TOLERATED WELL. BREATHING WAS NORMAL WITH SYMMETRICAL RISE AND FALL OF CHEST. WILL CONTINUE TO OBSERVE PATIENT.
[2022-09-08] MEDS: NACL 0.9% 1,000 ML IV SCH ×3 (06:20→22:20)
[2022-09-08 07:07] LABS: ANION GAP 3.2 (8-16); CARBON DIOXIDE 31.6 mmol/L (21-32); CREATININE 0.7 mg/dL (0.6-1.3); POTASSIUM 3.8 mmol/L (3.5-5.1)
--- NOTE | 2022-09-08 07:47 | NUR ---
ENDORSED TO DAY SHIFT NURSE RADHA FOR CONTINUITY OF CARE. PATIENT IS STABLE.
[2022-09-08] MEDS: NICOTINE TRANSD SYS 21 MG/24 HR PATCH TD SCH (09:40)
[2022-09-08 12:00] VITALS: BP 118/80
[2022-09-08] MEDS: THERAHONEY GEL 42.5 GM TP SCH (13:00)
[2022-09-08] MEDS ORDERED: VANCOMYCIN PER PHARMACY MC PRN (15:50)
[2022-09-08 16:00] VITALS: BP 118/80
--- NOTE | 2022-09-08 16:08 | NUR ---
09/08/2022 RD INITIAL ASSESSMENT COMPLETED. PLEASE REFER TO NUTRITION ASSESSMENT UNDER CARE ACTIVITY FOR ESTIMATED NUTRITIONAL NEEDS. 1.CONTINUE WITH REGULAR DIET 2.RECOMMEND SAI BID + ENSURE TO PROMOTE WOUND HEALING PER RD PROTOCOL. 3.MONITOR PO INTAKE AND FOR WOUND HEALING 4.RD TO FOLLOW-UP IN 3-5 DAYS PATIENT IS MODERATE RISK. COLE GUAN, RD
[2022-09-08] MEDS: LORazepam 2 MG/ML VIAL IVP PRN (18:02)
--- NOTE | 2022-09-08 19:30 | NUR ---
RECEIVED REPORT FROM DAY SHIFT NURSE RADHA FOR CONTINUITY OF CARE. PATIENT IS A&O X3-4. PATIENT IS ON ROOM AIR, BREATHING IS NORMAL WITH SYMMETRICAL RISE AND FALL OF CHEST. IV IS A 22G LFA, RUNNING NS AT 125. PATIENT IS SLEEPING, LYING SUPINE WITH COVERS OVER LEGS. BED IS IN LOWEST POSITION, WHEELS LOCKED, CALL LIGHT IN PLACE. WILL CONTINUE TO OBSERVE PATIENT.
[2022-09-08 20:00] VITALS: BP 122/66
[2022-09-08] MEDS: QUEtiapine FUMARATE 100 MG TAB PO SCH (20:49)
--- NOTE | 2022-09-08 20:50 | NUR ---
OBTAINED 1999 VITALS, VITALS WERE: BP 122/66, HR 98, O2 98, RR 18, TEMP 97.4. ADMINISTERED 2000 IVPB VANCOCIN; IVPB WAS STARTED SUCCESSFULLY WITHOUT ANY ISSUES. ADMINISTERED 2100 MEDICATION, MEDICATION GIVEN SUCCESSFULLY WITH NO DIFFICULTY WITH SWALLOWING. PATIENT WAS SLEEPING UPON ENTERING THE ROOM. PATIENT WAS WOKEN UP, PATIENT WAS IN GOOD SPIRITS. I ASKED PATIENT HOW HE WAS DOING, PATIENT STATED HE WAS DOING FINE; WE SPOKE ABOUT HIS ROSARY AROUND HIS NECK. HE SEEMED TO ENJOY THE CONVERSATION. PATIENT STATED HE WAS GOING TO GO BACK TO SLEEP. BED WAS IN LOWEST POSITION, WHEELS LOCKED, CALL LIGHT IN PLACE. WILL CONTINUE TO OBSERVE PATIENT.
--- NOTE | 2022-09-08 23:30 | NUR ---
WENT INTO PATIENT'S ROOM TO OBTAIN 0000 VITALS. PATIENT WAS SLEEPING, LYING SUPINE. WOKE PATIENT UP AND TOLD HIM I NEEDED TO CHECK HIS VITALS. PATIENT WAS VERY GROGGY, NOT OPENING HIS EYES BUT FOLLOWING COMMANDS. OBTAINED VITALS, BP WAS LOW. HAD PATIENT WAKE UP MORE AND RAISED THE HEAD OF BED AND WOKE PATIENT UP MORE TO REASSESS BP. VITALS WERE: BP 95/47, HR 100, O2 98%, RR 18, TEMP 97.1. CHECKED PATIENT'S CHART, PATIENT RECEIVED 1MG OF ATIVAN AT 1802. PATIENT ALSO HAD SEROQUEL A SCHEDULED MEDICATION AT 2048. PATIENT IS ABLE TO WAKE UP AND IS AWARE OF HIS SURROUNDINGS, JUST VERY TIRED. PATIENT STATES THAT HE DOES NOT FEEL LIGHT HEADED, JUST TIRED. PATIENT'S BREATHING IS NORMAL WITH SYMMETRICAL RISE AND FALL OF CHEST. WILL CONTINUE TO OBSERVE PATIENT.
[2022-09-09] VITALS: BP 95/47
[2022-09-09] MEDS: GAUZE TP SCH ×2 (01:00→13:09)
--- NOTE | 2022-09-09 02:00 | NUR ---
LOOKED IN ON PATIENT. PATIENT WAS SLEEPING, LYING SUPINE. BREATHING IS NORMAL WITH SYMMETRICAL RISE AND FALL OF CHEST. HAVE BEEN CHECKING ON PATIENT OVER THE PAST FEW HOURS. PATIENT IS ABLE TO WAKE UP AND IS AWARE OF HIS SURROUNDINGS BUT CONTINUES TO BE GROGGY. WILL CONTINUE TO OBSERVE PATIENT.
[2022-09-09 04:00] VITALS: BP 110/62
[2022-09-09] MEDS: VANCOMYCIN 1,000 MG in DEXTROSE 5% 250 ML IV SCH ×3 (04:48→20:45)
[2022-09-09] MEDS: NACL 0.9% 1,000 ML IV SCH ×3 (04:48→22:20)
--- NOTE | 2022-09-09 05:00 | NUR ---
OBTAINED VITALS FROM PATIENT. VITALS WERE: BP 110/62, HR 97, RR 18, O2 95, TEMP 96.7. PATIENT WAS ASLEEP WHEN I ENTERED THE ROOM, BUT IS MORE EASILY AWAKENED. ADMINISTERED 0400 VANCO IVPB TO PATIENT. PATIENT TOLERATED ADMINISTRATION WELL. PATIENT'S BREATHING IS NORMAL WITH SYMMETRICAL RISE AND FALL OF CHEST. BED IS IN LOWEST POSITION, WHEELS LOCKED, CALL LIGHT IN PLACE. WILL CONTINUE TO OBSERVE PATIENT.
[2022-09-09 07:04] LABS: ANION GAP 8.5 (8-16); CARBON DIOXIDE 28.5 mmol/L (21-32); CREATININE 0.7 mg/dL (0.6-1.3)
--- NOTE | 2022-09-09 07:30 | NUR ---
ENDORSED TO DAY SHIFT NURSE JOSE FOR CONTINUITY OF CARE. PATIENT IS STABLE.
[2022-09-09 08:00] VITALS: BP 118/77
--- NOTE | 2022-09-09 08:30 | NUR ---
ASSESSMENT COMPLETED PLAN OF CARE REVIEWED PT RESTING NO DISTRESS NOTED CONDITION GUARDED WILL CONTINUE TO MONITOR AND ASSESS CALL LIGHT IN REACH
[2022-09-09] MEDS: NICOTINE TRANSD SYS 21 MG/24 HR PATCH TD SCH (08:34)
[2022-09-09] MEDS: ACETAMINOPHEN 325 MG TAB PO PRN (08:35)
[2022-09-09 12:00] VITALS: BP 118/73
[2022-09-09] MEDS: NON ADHERENT DRESSING TP SCH (13:10)
[2022-09-09] MEDS: THERAHONEY GEL 42.5 GM TP SCH (13:10)
[2022-09-09] MEDS: LORazepam 2 MG/ML VIAL IVP PRN (15:20)
--- NOTE | 2022-09-09 15:20 | NUR ---
PT ENDORSES HE IS ANXIOUS AND NEEDS ATIVAN MEDICATED ORDERED NO DISTRESS NOTED
[2022-09-09 16:00] VITALS: BP 106/64
--- NOTE | 2022-09-09 19:28 | NUR ---
RECEIVED PT FROM DAY SHIFT NURSE JOSE. PT AWAKE IN BED. RESPIRATIONS EVEN AND UNLABORED ON RA. NO DISTRESS NOTED. NO COMPLAINTS OF PAIN. RIGHT FOOT AND LEFT CALF COVERED WITH BANDAGES. IV SITE ON LFA 22G, INFUSING IVF. CALL LIGHT WITHIN REACH. SAFETY PRECAUTIONS IN PLACE.
[2022-09-09 20:00] VITALS: BP 105/58
[2022-09-09] MEDS: QUEtiapine FUMARATE 100 MG TAB PO SCH (20:41)
--- NOTE | 2022-09-09 20:41 | NUR ---
SCHEDULED MED ADMINISTERED. PT TEACHING ABOUT MED GIVEN. PT VERBALIZED UNDERSTANDING.
--- NOTE | 2022-09-09 20:45 | NUR ---
SCHEDULED IV VANCO ADMINISTERED BY JACQUELYN GALVAN. VANCO TROUGH 19.0 VERIFIED WITH [facility]. PER EBENEZER, NEGRITO TO GIVE. NO ADVERSE REACTION NOTED.
--- NOTE | 2022-09-09 21:25 | NUR ---
Patient's Plan of Care was discussed and reviewed with NICKO TORREZ
--- NOTE | 2022-09-10 00:37 | NUR ---
PT REQUESTED FOR SNACKS. SNACKS GIVEN. PT ATE AND STAYED IN BED. NO DISTRESS NOTED.
[2022-09-10] MEDS: GAUZE TP SCH ×2 (00:44→13:00)
--- NOTE | 2022-09-10 00:45 | NUR ---
WOUND CARE DONE. PT TOLERATED WELL.
--- NOTE | 2022-09-10 02:58 | NUR ---
PT COMFORTABLE SLEEPING IN BED. BILATERAL CHEST RISING AND FALLING WITH NO ACUTE DISTRESS NOTED. SAFETY PRECAUTIONS IN PLACE.
[2022-09-10] MEDS: NACL 0.9% 1,000 ML IV SCH ×3 (03:02→22:20)
[2022-09-10 04:00] VITALS: BP 112/68
[2022-09-10] MEDS: VANCOMYCIN 1,000 MG in DEXTROSE 5% 250 ML IV SCH ×3 (04:00→20:49)
[2022-09-10 05:28] LABS: BASOPHILS # (AUTO) 0.1 K/uL (0.00-0.22); BASOPHILS % (AUTO) 0.9 % (0.0-2.0); EOSINOPHILS # (AUTO) 0.3 K/uL (0-0.4); HEMATOCRIT 34.6 % (36-52); HEMOGLOBIN 11.7 g/dL (12.0-18.0); LYMPHOCYTES # (AUTO) 1.9 K/uL (2.0-11.5); LYMPHOCYTES % (AUTO) 25.3 % (20.5-51.1); MEAN CORPUSCULAR HEMOGLOBIN 32 pg (27-31); MEAN CORPUSCULAR HGB CONC 34 g/dL (33-37); MEAN CORPUSCULAR VOLUME 93.5 fL (80-94); MONOCYTES # (AUTO) 0.7 K/uL (0.8-1.0); MONOCYTES % (AUTO) 9.5 % (1.7-9.3); NEUTROPHILS # (AUTO) 4.6 K/uL (1.8-7.7); NEUTROPHILS % (AUTO) 60.3 % (42.2-75.2); PLATELET COUNT (AUTO) 476 K/uL (140-450); RED CELL DISTRIBUTION WIDTH 13.8 % (11.6-13.7); WHITE BLOOD COUNT (AUTO) 7.6 K/uL (4.8-10.8)
--- NOTE | 2022-09-10 06:04 | NUR ---
PT AWAKE, WENT TO THE REST ROOM. NO COMPLAINTS OF PAIN. NO DISTRESS NOTED.
[2022-09-10 06:47] LABS: ANION GAP 11.4 (8-16); CARBON DIOXIDE 26.5 mmol/L (21-32); CREATININE 0.8 mg/dL (0.6-1.3); POTASSIUM 3.9 mmol/L (3.5-5.1)
--- NOTE | 2022-09-10 07:35 | NUR ---
ENDORSED PT TO DAY SHIFT NURSE LUDA FOR CONTINUITY OF CARE. ALL NEEDS MET THROUGHOUT SHIFT. PT IS STABLE.
--- NOTE | 2022-09-10 07:36 | NUR ---
RECEIVED PT FROM INTERNET APPLICATION DEVELOPER NURSE FOR CONTINUITY OF CARE. PT LAYING IN BED EYES CLOSED. AROUSABLE TO VOICE. EVEN CHEST RISE AND FALL. RESPIRATIONS EVEN AND UNLABORED ON ROOM AIR. NO DISTRESS NOTED. IV ON L F/A INFUSING NS AT 125. ALL SAFETY PRECAUTIONS IN PLACE. CALL LIGHT WITHIN REACH.
[2022-09-10 08:00] VITALS: BP 102/56
--- NOTE | 2022-09-10 10:00 | NUR ---
REMOVED PT NICOTINE PATCH. PLACE NEW ONE ON R ARM. PT TOLERATING WELL. PT REQUESTS SODA.
[2022-09-10] MEDS: LORazepam 2 MG/ML VIAL IVP PRN (10:35)
[2022-09-10] MEDS: NICOTINE TRANSD SYS 21 MG/24 HR PATCH TD SCH (10:50)
[2022-09-10] MEDS: THERAHONEY GEL 42.5 GM TP SCH (13:00)
--- NOTE | 2022-09-10 13:00 | NUR ---
PT MOTHER AT BEDSIDE.
--- NOTE | 2022-09-10 14:00 | NUR ---
IV VANCOMYCIN GIVEN BY JACQUELYN WASSERMAN.
--- NOTE | 2022-09-10 14:00 | NUR ---
PT NEW IV SITE ON R HAND. 20G. IV PATENT INTACT AND INFUSING WELL.
[2022-09-10 16:00] VITALS: BP 111/71
--- NOTE | 2022-09-10 16:00 | NUR ---
PT FATHER AT BEDSIDE.
--- NOTE | 2022-09-10 16:13 | NUR ---
09/10/22 RD FOLLOW UP COMPLETED.PLEASE REFER TO NUTRITION ASSESSMENT UNDER CARE ACTIVITY FOR ESTIMATED NUTRITIONAL NEEDS. 1.CONTINUE WITH REGULAR DIET 2.CONTINUE WITH SAI BID + ENSURE TO PROMOTE WOUND HEALING PER RD PROTOCOL. 3.MONITOR PO INTAKE AND FOR WOUND HEALING 4.RD TO FOLLOW-UP IN 5-7 DAYS PATIENT IS LOW RISK. COLE GUAN, RD
--- NOTE | 2022-09-10 17:00 | NUR ---
COMPLETED PT WOUND CARE PRESCRIBED.
--- NOTE | 2022-09-10 19:11 | NUR ---
ENDORSED PT TO CRUISE CONSULTANT NURSE FOR CONTINUITY OF CARE. ALL NEEDS MET THROUGHOUT SHIFT. PT STABLE.
--- NOTE | 2022-09-10 19:12 | NUR ---
RECEIVED REPORT FROM MORNING SHIFT NURSE. PT IS AOX3, & ON BEDREST. PT IS ON ROOM AIR AND ON REGULAR DIET. PT HAS IV ON RIGHT HAND GAUGE 22 RUNNING WITH NS AT 125. PT HAS WOUND ON RIGHT HEEL, LEFT WRIST, RIGHT FOOT AND LEFT LEG. NO S/S OF RESPIRATORY DISTRESS NOTED. ALL SAFETY MEASURES WAS IMPLEMENTED. BED IN LOW POSITION, BED WHEELS ON LOCKED AND CALL LIGHT WITHIN REACH.
[2022-09-10] MEDS: ACETAMINOPHEN 325 MG TAB PO PRN (20:50)
[2022-09-10] MEDS: QUEtiapine FUMARATE 100 MG TAB PO SCH (20:50)
--- NOTE | 2022-09-10 20:50 | NUR ---
ALL SCHEDULED AND PRESCRIBED MEDICATION WAS GIVEN TO PT PER MD ORDER. TYLENOL WAS ALSO GIVEN TO PT DUE TO PAIN. ALL SAFETY MEASURES WAS IMPLEMENTED. BED IN LOW POSITION, BED WHEELS ON LOCKED AND CALL LIGHT WITHIN REACH.
--- NOTE | 2022-09-10 22:00 | NUR ---
PT WAS GIVEN WARM BLANKET PER PT REQUEST. PT DENIES PAIN AT THIS TIME. NO S/S OF RESPIRATORY DISTRESS NOTED. ALL SAFETY MEASURES IMPLEMENTED. BED IN LOW POSITION, BED WHEELS ON LOCKED AND CALL LIGHT WITHIN REACH.
[2022-09-11] VITALS: BP 118/84
--- NOTE | 2022-09-11 | NUR ---
PT IS SLEEPING. CHEST RISE AND FALL SYMMETRICALLY NOTED. RESPIRATION IS EVEN AND UNLABORED. ALL SAFETY MEASURES IMPLEMENTED. BED IN LOW POSITION, BED WHEELS ON LOCKED AND CALL LIGHT WITHIN REACH.
[2022-09-11] MEDS: GAUZE TP SCH ×2 (01:04→13:00)
[2022-09-11] MEDS: VANCOMYCIN 1,000 MG in DEXTROSE 5% 250 ML IV SCH ×3 (04:37→20:05)
--- NOTE | 2022-09-11 04:37 | NUR ---
SCHEDULED AND PRESCRIBED MEDICATION WAS GIVEN TO PT PER MD ORDER. ALL SAFETY MEASURES IMPLEMENTED. BED IN LOW POSITION, BED WHEELS ON LOCKED AND CALL LIGHT WITHIN REACH.
[2022-09-11 05:27] LABS: BASOPHILS # (AUTO) 0.1 K/uL (0.00-0.22); BASOPHILS % (AUTO) 0.9 % (0.0-2.0); EOSINOPHILS # (AUTO) 0.3 K/uL (0-0.4); EOSINOPHILS % (AUTO) 4.5 % (0.0-4.0); HEMATOCRIT 35.8 % (36-52); HEMOGLOBIN 11.8 g/dL (12.0-18.0); LYMPHOCYTES # (AUTO) 2.3 K/uL (2.0-11.5); LYMPHOCYTES % (AUTO) 33.2 % (20.5-51.1); MEAN CORPUSCULAR HEMOGLOBIN 31 pg (27-31); MEAN CORPUSCULAR HGB CONC 33 g/dL (33-37); MEAN CORPUSCULAR VOLUME 94.6 fL (80-94); MONOCYTES # (AUTO) 0.6 K/uL (0.8-1.0); MONOCYTES % (AUTO) 8.8 % (1.7-9.3); NEUTROPHILS # (AUTO) 3.6 K/uL (1.8-7.7); NEUTROPHILS % (AUTO) 52.6 % (42.2-75.2); PLATELET COUNT (AUTO) 443 K/uL (140-450); RED BLOOD CELL COUNT(AUTO) 3.79 MIL/uL (4.20-6.10); RED CELL DISTRIBUTION WIDTH 13.6 % (11.6-13.7); WHITE BLOOD COUNT (AUTO) 6.9 K/uL (4.8-10.8)
[2022-09-11] MEDS: NACL 0.9% 1,000 ML IV SCH ×3 (06:34→22:20)
--- NOTE | 2022-09-11 07:09 | NUR ---
PT IS STABLE. ENDORSED PT TO MORNING SHIFT NURSE FOR CONTINUITY OF CARE.
[2022-09-11 08:00] VITALS: BP 106/71
--- NOTE | 2022-09-11 08:01 | NUR ---
RECEIVED PT CARE AND REPORT FROM MARISSA VALLADARES. PT IS RESTING IN BED ON RIGHT SIDE, HEAD COVERED WITH BLANKET. NO VISIBLE S/S OF DISTRESS, DISCOMFORT, PAIN OR SOB. CALL LIGHT IS WITHIN REACH, ALL NEEDS MET AT THIS TIME.
[2022-09-11] MEDS: NICOTINE TRANSD SYS 21 MG/24 HR PATCH TD SCH (08:56)
[2022-09-11] MEDS: NON ADHERENT DRESSING TP SCH (09:00)
--- NOTE | 2022-09-11 09:02 | NUR ---
NICOTINE PATCH ON UPPER LEFT ARM. PREVIOUS PATCH ON BACK FELL OFF IN THE MIDDLE OF THE NIGHT. NO PATCH NOTICED ON PATIENT'S BODY.
--- NOTE | 2022-09-11 12:48 | NUR ---
IV IN RIGHT HAND LEAKING, REMOVED WITH CATHETER INTACT. NO PAIN OR SWELLING AT SITE. NEW IV STARTED IN LEFT WRIST, 22G, X1 ATTEMPT.
[2022-09-11] MEDS: THERAHONEY GEL 42.5 GM TP SCH (13:00)
[2022-09-11] MEDS: PERMETHRIN 1% 60 ML BTL TP SCH (15:29)
[2022-09-11 16:00] VITALS: BP 115/71
[2022-09-11] MEDS: PIPERACILLIN/TAZOBACTAM 3.375 GM in DEXTROSE 5% 50 ML IV SCH (18:23)
--- NOTE | 2022-09-11 19:15 | NUR ---
REPORT RECEIVED FROM DEWEY RN. CARE TAKEN OVER. PATIENT IN NO APPARENT DISTRESS, ATE 90% OF HIS DINNER TRAY. WILL CONTINUE TO MONITOR PT.
--- NOTE | 2022-09-11 19:18 | NUR ---
PT IS RESTING IN BED SEMI DUANE, A&[id number], APPEARS CALM. NO VISIBLE S/S OF DISTRESS OR DISCOMFORT. DENIES PAIN OR SOB. CALL LIGHT WITHIN REACH, ALL NEEDS MET AT THIS TIME. WILL ENDORSE TO NOC SHIFT.
[2022-09-11] MEDS: LORazepam 2 MG/ML VIAL IVP PRN (20:04)
[2022-09-11] MEDS: QUEtiapine FUMARATE 100 MG TAB PO SCH (20:12)
[2022-09-12] VITALS: BP 129/84
[2022-09-12] MEDS: GAUZE TP SCH ×2 (01:00→13:00)
[2022-09-12] MEDS: VANCOMYCIN 1,000 MG in DEXTROSE 5% 250 ML IV SCH ×3 (03:10→21:00)
[2022-09-12 04:00] VITALS: BP 146/72
[2022-09-12] MEDS: NACL 0.9% 1,000 ML IV SCH ×3 (05:11→23:10)
[2022-09-12] MEDS: PIPERACILLIN/TAZOBACTAM 3.375 GM in DEXTROSE 5% 50 ML IV SCH ×6 (05:16→23:30)
[2022-09-12 05:55] LABS: BASOPHILS # (AUTO) 0.1 K/uL (0.00-0.22); BASOPHILS % (AUTO) 1.1 % (0.0-2.0); EOSINOPHILS # (AUTO) 0.5 K/uL (0-0.4); EOSINOPHILS % (AUTO) 6.6 % (0.0-4.0); HEMATOCRIT 34.3 % (36-52); HEMOGLOBIN 11.5 g/dL (12.0-18.0); LYMPHOCYTES # (AUTO) 2.4 K/uL (2.0-11.5); LYMPHOCYTES % (AUTO) 33.6 % (20.5-51.1); MEAN CORPUSCULAR HEMOGLOBIN 31 pg (27-31); MEAN CORPUSCULAR HGB CONC 34 g/dL (33-37); MEAN CORPUSCULAR VOLUME 93.3 fL (80-94); MONOCYTES # (AUTO) 0.7 K/uL (0.8-1.0); MONOCYTES % (AUTO) 10.4 % (1.7-9.3); NEUTROPHILS # (AUTO) 3.4 K/uL (1.8-7.7); NEUTROPHILS % (AUTO) 48.3 % (42.2-75.2); PLATELET COUNT (AUTO) 429 K/uL (140-450); RED BLOOD CELL COUNT(AUTO) 3.68 MIL/uL (4.20-6.10); RED CELL DISTRIBUTION WIDTH 13.6 % (11.6-13.7); WHITE BLOOD COUNT (AUTO) 7.1 K/uL (4.8-10.8)
--- NOTE | 2022-09-12 07:15 | NUR ---
RECEIVED REPORT FRO9M CDL TRUCK DRIVER NURSE FOR CONTINUITY OF CARE. PATIENT ASLEEP NO DISTRESS NOTED. ON CONTACT ISOLATION. RESPIRATION EVEN AND NOT LABORED ON ROOM AIR. IV SITE ON LEFT WRIST REID 20 RUNNING AT 125 CC/HOUR OF NS. ALL SAFETY MEASURE IN PLACE.
[2022-09-12] MEDS: NICOTINE TRANSD SYS 21 MG/24 HR PATCH TD SCH (08:31)
--- NOTE | 2022-09-12 08:33 | NUR ---
PATIENT AWAKE EATING HIS BREAKFAST GIVEN HIS NICOTINE TRANSDERMAL PATCH.
[2022-09-12 09:16] LABS: ANION GAP 10.2 (8-16); CARBON DIOXIDE 28.4 mmol/L (21-32); CREATININE 0.8 mg/dL (0.6-1.3); POTASSIUM 3.6 mmol/L (3.5-5.1)
--- NOTE | 2022-09-12 09:50 | NUR ---
CALLED PHARMACY REGARDING PERMACTIN ORDER OR PATIENT AND THEY RECOMMEND THAT IT SHOULD BE EVERY WEEK NOT EVERY DAY LEFT MESSAGE TO DR. SALAS WAITING FOR RESPONSE.
--- NOTE | 2022-09-12 12:00 | NUR ---
PATIENT IV WAS PULLED AFTER RN HANG IV ANTIBIOTIC REINSERTED TO HIS RIGHT FORE ARM REID 22 TOLERATED WELL AND CONTINUE IV ANTIBIOTIC.
[2022-09-12] MEDS: THERAHONEY GEL 42.5 GM TP SCH (13:00)
--- NOTE | 2022-09-12 14:00 | NUR ---
TREATMENT ON HIS WOUND DONE TOLERATED WELL.
[2022-09-12 16:00] VITALS: BP 111/72
[2022-09-12] MEDS: PERMETHRIN 1% 60 ML BTL TP SCH (18:00)
--- NOTE | 2022-09-12 18:06 | NUR ---
APPLY NIX TO PATIENT HAIR NOTED WITH LOTS OF LICE.
--- NOTE | 2022-09-12 19:10 | NUR ---
RECEIVED REPORT FROM DEWEY VALLADARES. PATIENT IN NO APPARENT PAIN OR DISTRESS. WILL TAKE OVER CARE OF PATIENT AT THIS TIME. WILL CONTINUE TO MONITOR.
--- NOTE | 2022-09-12 19:15 | NUR ---
RECEIVED REPORT FROM DEWEY VALLADARES. PATIENT IN NO APPARENT PAIN OR DISTRESS. WILL TAKE OVER CARE OF PATIENT AT THIS TIME. WILL CONTINUE TO MONITOR.
--- NOTE | 2022-09-12 19:15 | NUR ---
RECEIVED REPORT FROM DEWEY VALLADARES. PATIENT IN NO APPARENT PAIN OR DISTRESS. WILL TAKE OVER CARE OF PATIENT AT THIS TIME. WILL CONTINUE TO MONITOR.
--- NOTE | 2022-09-12 19:20 | NUR ---
Gave report to slot shift supervisor nurse for continuity of care.
[2022-09-12 20:00] VITALS: BP 111/70
[2022-09-12] MEDS: QUEtiapine FUMARATE 100 MG TAB PO SCH (21:05)
[2022-09-12] MEDS ORDERED: ZOLPIDEM 10 MG TAB PO PRN (22:55)
[2022-09-13] MEDS: GAUZE TP SCH (01:31)
[2022-09-13 05:46] LABS: BASOPHILS # (AUTO) 0.1 K/uL (0.00-0.22); EOSINOPHILS # (AUTO) 0.6 K/uL (0-0.4); HEMATOCRIT 35.6 % (36-52); HEMOGLOBIN 11.9 g/dL (12.0-18.0); LYMPHOCYTES # (AUTO) 2.5 K/uL (2.0-11.5); LYMPHOCYTES % (AUTO) 28.9 % (20.5-51.1); MEAN CORPUSCULAR HEMOGLOBIN 31 pg (27-31); MEAN CORPUSCULAR HGB CONC 33 g/dL (33-37); MEAN CORPUSCULAR VOLUME 93.6 fL (80-94); MONOCYTES # (AUTO) 0.9 K/uL (0.8-1.0); MONOCYTES % (AUTO) 10.6 % (1.7-9.3); NEUTROPHILS # (AUTO) 4.6 K/uL (1.8-7.7); NEUTROPHILS % (AUTO) 52.5 % (42.2-75.2); PLATELET COUNT (AUTO) 478 K/uL (140-450); RED CELL DISTRIBUTION WIDTH 13.5 % (11.6-13.7); WHITE BLOOD COUNT (AUTO) 8.7 K/uL (4.8-10.8)
[2022-09-13] MEDS: VANCOMYCIN 1,000 MG in DEXTROSE 5% 250 ML IV SCH (06:00)
[2022-09-13] MEDS: PIPERACILLIN/TAZOBACTAM 3.375 GM in DEXTROSE 5% 50 ML IV SCH (06:07)
[2022-09-13] MEDS: NACL 0.9% 1,000 ML IV SCH (06:22)
[2022-09-13 06:25] LABS: CARBON DIOXIDE 28.1 mmol/L (21-32); CREATININE 0.9 mg/dL (0.6-1.3); POTASSIUM 4.1 mmol/L (3.5-5.1)
[2022-09-13 08:00] VITALS: BP 123/68
[2022-09-13] MEDS: NON ADHERENT DRESSING TP SCH (09:00)
[2022-09-13] MEDS: NICOTINE TRANSD SYS 21 MG/24 HR PATCH TD SCH (10:06)
--- NOTE | 2022-09-13 11:00 | NUR ---
Patient is leaving AMA. Dr. Mead is aware and discussed the risks and benefits with the patient. PICC line removed, tolerated well, no bleeding noted. Patient mother is at bedside and aware that patient is leaving AMA.
[2022-09-19] MEDS ORDERED: PERMETHRIN 1% 60 ML BTL TP PRN (07:00)
== END 2022-09-13 14:11 | disposition left against medical advice (07) | DRG 383 ==
LOC: MED 09:13 → MTU 14:23
PROVIDERS: ADMIT Hospitalist; ATTEND Hospitalist
PROC: 0X9H0ZZ Drainage of Left Wrist Region, Open Approach (ICD-10-PCS; 2022-09-04)
PROC: 02HV33Z Insertion of Infusion Device into Superior Vena Cava, Percutaneous Approach (ICD-10-PCS; principal; 2022-09-12)
DX: L03.114 Cellulitis of left upper limb (principal); J18.9 Pneumonia, unspecified organism; E44.0 Moderate protein-calorie malnutrition; L97.929 Non-pressure chronic ulcer of unspecified part of left lower leg with unspecified severity; L02.414 Cutaneous abscess of left upper limb; D64.9 Anemia, unspecified; F19.10 Other psychoactive substance abuse, uncomplicated; Z20.822 Contact with and (suspected) exposure to COVID-19; B19.20 Unspecified viral hepatitis C without hepatic coma; L08.9 Local infection of the skin and subcutaneous tissue, unspecified; Z53.29 Procedure and treatment not carried out because of patient's decision for other reasons; Z68.1 Body mass index [BMI] 19.9 or less, adult; B96.5 Pseudomonas (aeruginosa) (mallei) (pseudomallei) as the cause of diseases classified elsewhere
CPT/HCPCS: 36415; 71045; 73702; 80048; 80053; 80202; 80305; 81001; 82550; 82553; 83605; 83735; 83880; 84100; 85025; 85610; 85730; 87040; 87070; 87075; 87081; 87086; 87186; 93005; 96365; 96367; 97116; 97163-GP; 99285; G0480; G0482; J2060; J2270; J2543; J3370; J7060; Q0092